=== PATIENT | female | born 1980 | race Caucasian/White ===

== ENCOUNTER → 2016-04-26 | Outpatient (CLI) | payer BC ==
[2016-04-27 14:06] LABS: Gliadin AB IgA, Deaminated 7 UNITS (<20); Gliadin AB IgG, Deaminated 4 UNITS (<20)
[2016-05-10 14:52] LABS: Mis test requested (Blood) Celiac Disease
[2016-05-13 11:15] LABS: Mis test requested (Blood) CD203
== END | disposition home or self-care (01) ==
LOC: LABWHC1 11:13
PROVIDERS: ATTEND Allergy & Immunology
DX: L50.9 Urticaria, unspecified (principal); R10.9 Unspecified abdominal pain
CPT/HCPCS: 36415; 81376; 81383; 82784; 83516; 84443; 86376; 86800; 88184; 88185

== ENCOUNTER 2016-06-18 08:40 | Day surgery (SDC) | payer BC ==
[2016-06-15 11:55] VITALS: BMI 38.9
[~2016-06-18 08:40] MED LIST: LACTATED RINGERS 1,000 ML IV SCH
[2016-06-18] MEDS ORDERED: LACTATED RINGERS 1,000 ML IV ONE (09:16)
[2016-06-18] MEDS ORDERED: LIDOCAINE 1% 20 ML VIAL (10MG/ML) FOR IV START INTRADERMA ONE (09:17)
[2016-06-18 09:20] VITALS: RESP 18; TEMP 98
--- NOTE | 2016-06-18 09:25 | P.GSHP ---
History of Present Illness H&P Date: 06/18/16 Chief Complaint: GERD This a 36-year-old female who presents today for EGD. She's had issues with GERD. - Constitutional Constitutional: Reports as per HPI Past Medical History Past Medical History: Fibromyalgia, GERD/Reflux, Hypertension, Osteoarthritis ( OA) Additional Past Medical History / Comment(s): Has migraines, dizzy spells, recent cardiology work-up for the dizzy spells. POSITIVE FOR EDS (connective tissue disorder.) States has photosensitivty. History of Any Multi-Drug Resistant Organisms: None Reported Past Surgical History: Back Surgery, Bariatric Surgery, Section, Cholecystectomy, Ear Surgery, Orthopedic Surgery, Tubal Ligation, Uterine Ablation Additional Past Surgical History / Comment(s): Has a piercing in L inner ear, states is to help with her migraines. Lap band removal and gastric sleeve surgery, sinus surgery, LT Knee surgery in 2014 X2. Also had C5 & C6 fusion in the past. RFA LUMBAR NERVES Past Anesthesia/Blood Transfusion Reactions: Previous Problems w/ Anesthesia Additional Past Anesthesia/Blood Transfusion Reaction / Comment(s): Is very restless when waking, has claustrophobia. Past Psychological History: Anxiety, Depression Smoking Status: Never smoker Past Alcohol Use History: Rare Past Drug Use History: None Reported - Past Family History Mother Family Medical History: No Reported History Medications and Allergies Home Medications Medication Instructions Recorded Confirmed Type Rizatriptan Benzoate [Maxalt] 10 mg PO DAILY PRN 08/04/15 06/18/16 History Bisoprolol-Hctz 5-6.25 mg [Ziac 1 tab PO DAILY 06/15/16 06/18/16 History 5-6.25 MG] DULoxetine HCL [Cymbalta] 90 mg PO DAILY 06/15/16 06/18/16 History Diazepam [Valium] 5 mg PO DAILY PRN 06/15/16 06/18/16 History Nabumetone [Relafen] 500 mg PO DAILY 06/15/16 06/18/16 History buPROPion HCL [Wellbutrin XL] 300 mg PO DAILY 06/15/16 06/18/16 History oxyCODONE-APAP 5-325MG [Percocet 1 tab PO HS 06/15/16 06/18/16 History 5-325 mg] tiZANidine [Zanaflex] 4 mg PO HS 06/15/16 06/18/16 History Allergies Allergy/AdvReac Type Severity Reaction Status Date / Time adhesive Allergy Rash/Hives Verified 06/15/16 11:42 latex Allergy Rash/Hives Verified 06/15/16 11:42 Surgical - Exam Vital Signs Temp Pulse Resp BP Pulse Ox 98.0 F 90 18 120/74 100 06/18/16 09:17 06/18/16 09:17 06/18/16 09:17 06/18/16 09:17 06/18/16 09:17 - General well developed, no distress - Eyes PERRL - ENT normal pinna - Neck no masses - Respiratory normal expansion - Cardiovascular Rhythm: regular - Abdomen Abdomen: soft, non tender Assessment and Plan Plan: GERD. We'll perform EGD.
[2016-06-18] MEDS ORDERED: PROPOFOL 10 MG/ML 20 ML VIAL IV ONE (09:32)
--- NOTE | 2016-06-18 09:48 | P.OP ---
Date of Procedure: 06/18/16 Preoperative Diagnosis: GERD Rule out celiac disease Postoperative Diagnosis: Mild antral gastritis Normal duodenum Normal gastric sleeve Procedure(s) Performed: EGD Anesthesia: DONOVAN Surgeon: Brady Lee Pathology: other (Antrum, duodenum) Condition: stable Disposition: PACU Description of Procedure: The patient was placed on the endoscopy table in the lateral position. She received IV sedation. The gastroscope some placed oropharynx and passed into the esophagus and into the stomach. The scope was then placed through the pylorus. The first and second portion of the duodenum appeared normal. A biopsy the duodenum was performed. Scope was then brought back the antrum and this is minimal inflamed a biopsies performed. Scope was then brought back through the gastric sleeve and this appeared normal. The GE junction was at a centimeters and. The distal esophagus appeared minimally inflamed and a biopsies was performed. The scope was then withdrawn and the proximal esophagus. Normal. Scope was withdrawn for patient.
[2016-06-18 10:15] VITALS: BP 123/66; PULSE 72
== END 2016-06-18 10:35 | disposition home or self-care (01) ==
LOC: ORWHC2ENDO 08:40
PROVIDERS: ATTEND Surgery
DX: K21.0 Gastro-esophageal reflux disease with esophagitis (principal); K29.50 Unspecified chronic gastritis without bleeding; I10 Essential (primary) hypertension; M19.90 Unspecified osteoarthritis, unspecified site; F41.9 Anxiety disorder, unspecified; F32.9 Major depressive disorder, single episode, unspecified; G43.909 Migraine, unspecified, not intractable, without status migrainosus; M79.7 Fibromyalgia; Z91.040 Latex allergy status; Z91.048 Other nonmedicinal substance allergy status; Z79.891 Long term (current) use of opiate analgesic; Z79.1 Long term (current) use of non-steroidal anti-inflammatories (NSAID); Z79.899 Other long term (current) drug therapy; Z98.84 Bariatric surgery status
CPT/HCPCS: 43239; 81025; 88305; 88342; J2704; 36415; 74177; 80053; 81003; 82150; 83605; 83690; 85025; 87086; 96361; 96374; 99284

== ENCOUNTER 2016-06-18 16:08 | Emergency (ER) | payer BC ==
[2016-06-18] MEDS ORDERED: SODIUM CHLORIDE 0.9% 1,000 ML IV STA (16:41)
[2016-06-18] MEDS ORDERED: RX INFO: IV CONTRAST WAS GIVEN 1 EACH MISC MISCELLANE PRN (16:41)
[2016-06-18] MEDS ORDERED: HYDROmorphone 1 MG/ML 1 ML SYRINGE IVP STA (16:41)
--- NOTE | 2016-06-18 16:52 | ED ---
Abdominal Pain HPI - General Chief Complaint: Abdominal Pain Stated Complaint: chest/back/abdominal pain Time Seen by Provider: 06/18/16 16:28 Source: patient, RN notes reviewed Mode of arrival: ambulatory Limitations: no limitations - History of Present Illness Initial Comments: 36-year-old female presents to the emergency department with a chief complaint of abdominal pain. Patient had a upper scope today. She states that after the scope she was feeling fine and she went home and she had some terrible abdominal pain. Twisting in the upper abdomen. Patient states he did take a biopsy to test the patient for celiac. Patient states that there is been no nausea vomiting or fever chills with this. Patient denies any cough cold runny nose. Patient states she was concerned due to the worsening abdominal pain so she thought that she should be seen. Patient denies any other symptoms with this. Patient states that she has had multiple abdominal surgeries in the past. Patient denies any recent fever, chills, shortness of breath, chest pain, back pain, nausea vomiting, numbness or tingling, dysuria or hematuria, constipation or diarrhea, headaches or visual changes, or any other current symptoms. - Related Data Home Medications Medication Instructions Recorded Confirmed Rizatriptan Benzoate [Maxalt] 10 mg PO DAILY PRN 08/04/15 06/18/16 Bisoprolol-Hctz 5-6.25 mg [Ziac 1 tab PO DAILY 06/15/16 06/18/16 5-6.25 MG] DULoxetine HCL [Cymbalta] 60 mg PO DAILY 06/15/16 06/18/16 Diazepam [Valium] 5 mg PO DAILY PRN 06/15/16 06/18/16 Nabumetone [Relafen] 500 mg PO BID 06/15/16 06/18/16 buPROPion HCL [Wellbutrin XL] 300 mg PO DAILY 06/15/16 06/18/16 oxyCODONE-APAP 5-325MG [Percocet 1 tab PO Q6HR PRN 06/15/16 06/18/16 5-325 mg] tiZANidine [Zanaflex] 4 mg PO BID PRN 06/15/16 06/18/16 DULoxetine HCL [Cymbalta] 30 mg PO DAILY 06/18/16 06/18/16 Allergies Allergy/AdvReac Type Severity Reaction Status Date / Time adhesive Allergy Rash/Hives Verified 06/18/16 17:06 latex Allergy Rash/Hives Verified 06/18/16 17:06 Review of Systems ROS Statement: Those systems with pertinent positive or pertinent negative responses have been documented in the HPI. ROS Other: All systems not noted in ROS Statement are negative. Past Medical History Past Medical History: Fibromyalgia, GERD/Reflux, Hypertension, Osteoarthritis ( OA) Additional Past Medical History / Comment(s): Has migraines, dizzy spells, recent cardiology work-up for the dizzy spells. POSITIVE FOR EDS (connective tissue disorder.) States has photosensitivty. History of Any Multi-Drug Resistant Organisms: None Reported Past Surgical History: Back Surgery, Bariatric Surgery, Section, Cholecystectomy, Ear Surgery, Orthopedic Surgery, Tubal Ligation, Uterine Ablation Additional Past Surgical History / Comment(s): Has a piercing in L inner ear, states is to help with her migraines. Lap band removal and gastric sleeve surgery, sinus surgery, LT Knee surgery in 2015 X2. Also had C5 & C6 fusion in the past. RFA LUMBAR NERVES Past Anesthesia/Blood Transfusion Reactions: Previous Problems w/ Anesthesia Additional Past Anesthesia/Blood Transfusion Reaction / Comment(s): Is very restless when waking, has claustrophobia. Past Psychological History: Anxiety, Depression Smoking Status: Never smoker Past Alcohol Use History: Rare Past Drug Use History: None Reported - Past Family History Mother Family Medical History: No Reported History General Exam - General Exam Comments Initial Comments: General: The patient is awake and alert, in no distress, and does not appear acutely ill. Eye: Pupils are equal, round and reactive to light, extra-ocular movements are intact; there is normal conjunctiva bilaterally. No signs of icterus. Ears, nose, mouth and throat: There are moist mucous membranes and no oral lesions. Neck: The neck is supple, there is no tenderness. Cardiovascular: There is a regular rate and rhythm. No murmur, rub or gallop is appreciated. Respiratory: Lungs are clear to auscultation, respirations are non-labored, breath sounds are equal. No wheezes, stridor, rales, or rhonchi. Gastrointestinal: Soft, non-distended, non-tender abdomen without masses or organomegaly noted. There is no rebound or guarding present. No CVA tenderness. Bowel sounds are unremarkable. Back: There is no tenderness to palpation in the midline. There is no obvious deformity. No rashes noted. Musculoskeletal: Normal ROM, no tenderness, There is no pedal edema. There is no calf tenderness or swelling. Sensation intact. Pulses equal bilaterally 2+. Neurological: CN II-XII intact, There are no obvious motor or sensory deficits. Coordination appears grossly intact. Speech is normal. Skin: Skin is warm and dry and no rashes or lesions are noted. Psychiatric: Cooperative, appropriate mood & affect, normal judgment. Limitations: no limitations Course Vital Signs 06/18/16 06/18/16 06/18/16 16:15 17:00 17:53 Temperature 98.8 F Pulse Rate 67 63 78 Respiratory 20 16 16 Rate Blood Pressure 118/68 142/59 154/75 O2 Sat by Pulse 100 98 99 Oximetry - Reevaluation(s) Reevaluation #1: 06/18/16 18:03 Patient this time states that she is feeling better. Medical Decision Making - Medical Decision Making 36-year-old female presents emergency department chief complaint of abdominal pain. This time patient's CAT scan of blood work are reviewed. We did discuss results. Mildly elevated liver enzymes. Discussed follow-up for this. We did discuss there is no acute process. We did discuss all the questions. Family stated they understood and all questions have been answered. They will be discharged home. - Lab Data Result diagrams: 06/18/16 16:45 06/18/16 16:45 Lab Results 06/18/16 06/18/16 06/18/16 Range/Units 16:45 16:45 16:45 WBC 6.2 (3.8-10.6) k/uL RBC 4.10 (3.80-5.40) m/uL Hgb 11.6 (11.4-16.0) gm/dL Hct 33.3 L (34.0-46.0) % MCV 81.2 (80.0-100.0) fL MCH 28.3 (25.0-35.0) pg MCHC 34.9 (31.0-37.0) g/dL RDW 14.8 (11.5-15.5) % Plt Count 215 (150-450) k/uL Neutrophils % 72 % Lymphocytes % 21 % Monocytes % 3 % Eosinophils % 2 % Basophils % 0 % Neutrophils # 4.4 (1.3-7.7) k/uL Lymphocytes # 1.3 (1.0-4.8) k/uL Monocytes # 0.2 (0-1.0) k/uL Eosinophils # 0.1 (0-0.7) k/uL Basophils # 0.0 (0-0.2) k/uL Sodium 139 (137-145) mmol/L Potassium 3.8 (3.5-5.1) mmol/L Chloride 100 (98-107) mmol/L Carbon Dioxide 29 (22-30) mmol/L Anion Gap 10 mmol/L BUN 11 (7-17) mg/dL Creatinine 0.80 (0.52-1.04) mg/dL Est GFR (MDRD) Af Amer >60 (>60 ml/min/1.73 sqM) Est GFR (MDRD) Non-Af >60 (>60 ml/min/1.73 sqM) Glucose 78 (74-99) mg/dL Plasma Lactic Acid James 1.1 (0.7-2.0) mmol/L Calcium 9.0 (8.4-10.2) mg/dL Total Bilirubin 1.0 (0.2-1.3) mg/dL AST 76 H (14-36) U/L ALT 56 H (9-52) U/L Alkaline Phosphatase 91 (38-126) U/L Total Protein 6.6 (6.3-8.2) g/dL Albumin 3.7 (3.5-5.0) g/dL Amylase 62 (30-110) U/L Lipase 147 (23-300) U/L Urine Color Urine Appearance (Clear) Urine pH (5.0-8.0) Ur Specific Snyder (1.001-1.035) Urine Protein (Negative) Urine Glucose (UA) (Negative) Urine Ketones (Negative) Urine Blood (Negative) Urine Nitrate (Negative) Urine Bilirubin (Negative) Urine Urobilinogen (<2.0) mg/dL Ur Leukocyte Esterase (Negative) 06/18/16 Range/Units 17:45 WBC (3.8-10.6) k/uL RBC (3.80-5.40) m/uL Hgb (11.4-16.0) gm/dL Hct (34.0-46.0) % MCV (80.0-100.0) fL MCH (25.0-35.0) pg MCHC (31.0-37.0) g/dL RDW (11.5-15.5) % Plt Count (150-450) k/uL Neutrophils % % Lymphocytes % % Monocytes % % Eosinophils % % Basophils % % Neutrophils # (1.3-7.7) k/uL Lymphocytes # (1.0-4.8) k/uL Monocytes # (0-1.0) k/uL Eosinophils # (0-0.7) k/uL Basophils # (0-0.2) k/uL Sodium (137-145) mmol/L Potassium (3.5-5.1) mmol/L Chloride (98-107) mmol/L Carbon Dioxide (22-30) mmol/L Anion Gap mmol/L BUN (7-17) mg/dL Creatinine (0.52-1.04) mg/dL Est GFR (MDRD) Af Amer (>60 ml/min/1.73 sqM) Est GFR (MDRD) Non-Af (>60 ml/min/1.73 sqM) Glucose (74-99) mg/dL Plasma Lactic Acid James (0.7-2.0) mmol/L Calcium (8.4-10.2) mg/dL Total Bilirubin (0.2-1.3) mg/dL AST (14-36) U/L ALT (9-52) U/L Alkaline Phosphatase (38-126) U/L Total Protein (6.3-8.2) g/dL Albumin (3.5-5.0) g/dL Amylase (30-110) U/L Lipase (23-300) U/L Urine Color Yellow Urine Appearance Clear (Clear) Urine pH 6.0 (5.0-8.0) Ur Specific Snyder 1.029 (1.001-1.035) Urine Protein Negative (Negative) Urine Glucose (UA) Negative (Negative) Urine Ketones Negative (Negative) Urine Blood Negative (Negative) Urine Nitrate Negative (Negative) Urine Bilirubin Negative (Negative) Urine Urobilinogen <2.0 (<2.0) mg/dL Ur Leukocyte Esterase Negative (Negative) - Radiology Data Radiology results: report reviewed, image reviewed Disposition Clinical Impression: Epigastric abdominal pain Disposition: HOME SELF-CARE Condition: Stable Instructions: Abdominal Pain (ED) Additional Instructions: Please use medication as discussed. Please follow up with family doctor if symptoms have not improved over the next two days. Please return to the emergency room if your symptoms increase or worsen or for any other concerns. Referrals: Dharmesh Montano MD [Primary Care Provider] - 1-2 days Time of Disposition: 18:04
[2016-06-18 17:05] LABS: Basophils % (A) 0 %; CH 28.1; CHCM 34.8; Eosinophils # (A) 0.1 k/uL (0-0.7); Eosinophils % (A) 2 %; HCT 33.3 % (34.0-46.0); HDW 3.17; HGB 11.6 gm/dL (11.4-16.0); Luc % (Auto) 2; Lymphocytes # (A) 1.3 k/uL (1.0-4.8); Lymphocytes % (A) 21 %; MCH 28.3 pg (25.0-35.0); MCHC 34.9 g/dL (31.0-37.0); MCV 81.2 fL (80.0-100.0); Mean Platelet Volume 7.5; Monocytes # (A) 0.2 k/uL (0-1.0); Monocytes % (A) 3 %; Neutrophils # (A) 4.4 k/uL (1.3-7.7); Neutrophils % (A) 72 %; RDW 14.8 % (11.5-15.5); WBC 6.2 k/uL (3.8-10.6); WBC (Perox) 6.56
[2016-06-18 17:24] LABS: ALT 56 U/L (9-52); AST 76 U/L (14-36); Alkaline Phosphatase 91 U/L (38-126); Amylase 62 U/L (30-110); Anion Gap 10 mmol/L; Blood Urea Nitrogen 11 mg/dL (7-17); Carbon Dioxide 29 mmol/L (22-30); Chloride 100 mmol/L (98-107); Glucose 78 mg/dL (74-99); Non-African American GFR(MDRD) >60 (>60 ml/min/1.73 sqM); Potassium 3.8 mmol/L (3.5-5.1); Sodium 139 mmol/L (137-145); Total Protein 6.6 g/dL (6.3-8.2)
--- NOTE | 2016-06-18 17:53 | CT ---
EXAMINATION TYPE: CT abdomen pelvis w con DATE OF EXAM: 06/18/2016 5:41 PM COMPARISON: NONE HISTORY: Patient having pain under ribcage, under xiphoid after having upper scope by Dr. Lee th is morning CT DLP: 1413.0 mGycm Automated exposure control for dose reduction was used. TECHNIQUE: Helical acquisition of images was performed from the lung bases through the pelvis. CONTRAST: Performed without Oral Contrast and with IV Contrast, patient injected with 100 mL of Omnipaque 300. FINDINGS: Lung bases are clear. There is no pleural effusion. There is a small hiatal hernia. There are surgica l clips at the gastric fundus. Liver spleen pancreas appear normal. There are clips from cholecystectomy. Bile ducts are not dilated . Common bile duct measures 1 cm. There is no adrenal mass. Kidneys show satisfactory contrast opacification. There is no hydronephrosi s. There is no retroperitoneal adenopathy. There is no ascites. Appendix appears normal. I see no int estinal wall thickening. There are no dilated loops. There is no sign of a pelvic mass. Bladder diste nds smoothly. There is no pelvic lymphadenopathy. I see no bony destructive process. There is bilater al L5 spondylolysis. There is also spondylolysis of L2 IMPRESSION: SMALL HIATAL HERNIA. GASTRIC SURGERY CHANGES CONSISTENT WITH BARIATRIC SURGERY. THERE IS L2 AND L5 SPONDYLOLYSIS WITHOUT SPONDYLOLISTHESIS. NO COMPRESSION FRACTURE. NO SIGN OF ACUTE ABDOMEN AND PELVIS. NO FREE AIR.
[2016-06-18 17:59] LABS: Appearance,Urine Clear (Clear); Bilirubin,Urine Negative (Negative); Glucose,Urine (UA) Negative (Negative); Ketones,Urine Negative (Negative); Leukocyte Esterase,Urine Negative (Negative); Nitrite,Urine Negative (Negative); Protein,Urine Negative (Negative); Specific Gravity,Urine 1.029 (1.001-1.035); UA Billing (MACRO vs. MICRO) CHEM; Urobilinogen,Urine <2.0 mg/dL (<2.0)
[2016-06-18 18:14] VITALS: BP 124/58; PULSE 62; RESP 18; TEMP 97.7
== END 2016-06-18 18:14 | disposition home or self-care (01) ==
LOC: EC 16:08
DX: R10.13 Epigastric pain (principal); R07.9 Chest pain, unspecified; M54.9 Dorsalgia, unspecified; R74.8 Abnormal levels of other serum enzymes; M79.7 Fibromyalgia; I10 Essential (primary) hypertension; M19.90 Unspecified osteoarthritis, unspecified site; F41.9 Anxiety disorder, unspecified; F32.9 Major depressive disorder, single episode, unspecified; Z79.899 Other long term (current) drug therapy; Z91.040 Latex allergy status; Z88.8 Allergy status to other drugs, medicaments and biological substances; Z90.49 Acquired absence of other specified parts of digestive tract; Z98.84 Bariatric surgery status
CPT/HCPCS: 36415; 80053; 82150; 83605; 83690; 85025; 81003; 87086; 74177; 99284; 96374; 96361; J1170; Q9967

== ENCOUNTER → 2016-07-05 | Outpatient (CLI) | payer BC ==
[2016-07-05 17:28] VITALS: BP 161/94; PULSE 62; RESP 15; TEMP 98.4; BMI 39.6
--- NOTE | 2016-07-06 07:51 | P.HPBAR ---
Bariatric H&P - History & Physicial H&P Date: 07/05/16 History & Physicial: Visit/CC: sleeve f/u (EGD June 2016) Patient initial contact: Initial weight: Initial weight in pounds: Height: 5 ft 3 in Initial BMI: Last weight: Current weight: 101.423 kg Current weight in pounds: 223.60 Current BMI: 39.6 [place] body weight (based on NIH guidelines): 52.163 kg Excess body weight loss: The patient is a 36 year-old F who presents for Bariatric Assessment. Patient presents today for sleeve yesterday fall. She had a recent EGD performed to [place] for possible celiac disease her biopsies are benign. Patient still has complaints of some epigastric pain. She describes a spasm type pain in the epigastric area. Past Medical History Past Medical History: Fibromyalgia, GERD/Reflux, Hypertension, Osteoarthritis ( OA) Additional Past Medical History / Comment(s): Has migraines, dizzy spells, recent cardiology work-up for the dizzy spells. POSITIVE FOR EDS (connective tissue disorder.) States has photosensitivty. History of Any Multi-Drug Resistant Organisms: None Reported Past Surgical History: Back Surgery, Bariatric Surgery, Section, Cholecystectomy, Ear Surgery, Orthopedic Surgery, Tubal Ligation, Uterine Ablation Additional Past Surgical History / Comment(s): Has a piercing in L inner ear, states is to help with her migraines. Lap band placed 2010 and then removed with conversion to Gastric Sleeve in 2012, sinus surgery, LT Knee surgery in 2014 X2. Also had C5 & C6 fusion in the past. RFA LUMBAR NERVES Past Anesthesia/Blood Transfusion Reactions: Previous Problems w/ Anesthesia Additional Past Anesthesia/Blood Transfusion Reaction / Comm: Is very restless when waking, has claustrophobia. Past Psychological History: Anxiety, Depression Smoking Status: Never smoker Past Alcohol Use History: Rare Past Drug Use History: None Reported - Past Family History Mother Family Medical History: No Reported History Surgical - Exam Vital Signs Temp Pulse Resp BP 98.4 F 62 15 161/94 07/05/16 17:13 07/05/16 17:13 07/05/16 17:13 07/05/16 17:13 - General well developed, no distress - Eyes PERRL - Neck no masses - Respiratory normal expansion - Cardiovascular Rhythm: regular - Abdomen Abdomen: soft, non tender Bariatric Assessment & Plan Plan: Morbid obesity. Patient is doing well. Weight loss. The patient will have a esophagram performed to rule out reflux or spasm. Bariatric Checklist Checklist: Plan: Checklist: EGD: 1. Hiatal hernia: 2. H. Pylori: HgbA1c: Vitamin D: Smoking: Never smoker Primary care physician referral: Dusty Psychiatry clearance: Cardiology clearance: Sleep study: Diet journal: VTE risk score: VTE risk level: Rehab needs at discharge:
== END | disposition home or self-care (01) ==
LOC: BARWHC3 14:55
PROVIDERS: ATTEND Surgery
DX: Z48.815 Encounter for surgical aftercare following surgery on the digestive system (principal); E66.01 Morbid (severe) obesity due to excess calories; Z68.39 Body mass index [BMI] 39.0-39.9, adult; R10.13 Epigastric pain; Z98.84 Bariatric surgery status
CPT/HCPCS: 99201

== ENCOUNTER → 2016-07-12 | Outpatient (CLI) | payer BC ==
--- NOTE | 2016-07-12 13:18 | FL ---
EXAMINATION TYPE: FL barium swallow DATE OF EXAM: 07/12/2016 1:01 PM LIMITED ESOPHAGRAM: CLINICAL HISTORY: History of lap band replaced by gastric sleeve 2012 with new sharp upper abdominal pain. Recent endoscopy. TECHNIQUE: Limited esophagram is performed utilizing 20 oz of contrast. A total of 1 minute 21 secon ds of fluoroscopic time was utilized during procedure. COMPARISON: CT abdomen and pelvis June 18, 2016.. FINDINGS: The patient drank oral contrast. Note is made of fusion plate in the lower cervical spin e. Note is made of cholecystectomy clips There is good flow of contrast along the course of the esoph ingrid. There is good flow of contrast along the course of diaphragmatic hiatus into gastric pouch jus t above sutures. There is an initial delay at level of proximal anastomosis of gastric sleeve. There is good flow through gastric sleeve with delay also noted at distal anastomosis. There is eventual fl ow into duodenal sweep. No significant hiatal hernia seen on this study suggesting sliding-type hiata l hernia on recent CT. No gastroesophageal reflux identified. No leak of contrast seen. IMPRESSION: Mild to moderate delay or obstruction at proximal and distal anastomosis of sleeve. Patie nt remains asymptomatic without symptoms of nausea or vomiting.
== END | disposition home or self-care (01) ==
LOC: RADFLMAIN 12:22
PROVIDERS: ATTEND Surgery
DX: R13.10 Dysphagia, unspecified (principal)
CPT/HCPCS: 74220

== ENCOUNTER → 2016-08-13 | Outpatient (CLI) | payer BC ==
--- NOTE | 2016-08-13 08:54 | MR ---
EXAMINATION TYPE: MR knee RT wo con DATE OF EXAM: 08/13/2016 8:35 AM COMPARISON: NONE HISTORY: rt knee pain TECHNIQUE: Multiplanar, multisequence imaging of the right knee is performed FINDINGS: MEDIAL MENISCUS: Linear increased signal posterior horn medial meniscus which extends to the peripher y of the meniscus without definite tear at this time. Anterior horn is unremarkable. LATERAL MENISCUS: Anterior and posterior horns are intact without tear. CRUCIATE LIGAMENTS: The anterior and posterior cruciate ligaments are intact and unremarkable. COLLATERAL LIGAMENTS: The medial collateral ligament and lateral collateral ligament complex are intact and unremarkable. EXTENSOR MECHANISM: Visualized quadriceps and patellar tendons are intact. EFFUSION: No evidence for joint effusion. POPLITEAL CYST: No popliteal/cazares cyst. TRICOMPARTMENT SPACES: Mild degenerative narrowing medial tibiofemoral joint space. CARTILAGE: Cartilaginous thinning involving the patella with underlying cystic change compatible with chondromalacia patella. Additional small cartilaginous defect and underlying cystic change involving the anterior aspect medial femoral condyle. BONE MARROW SIGNAL: No focal abnormal marrow signal is appreciated: OTHER: No additional significant abnormality is appreciated. IMPRESSION: 1. Linear increased signal posterior horn medial meniscus which extends to the periphery of the menis cus without definite tear at this time. 2. Degenerative narrowing as described with changes of chondromalacia patella. Cartilaginous defects as noted.
== END | disposition home or self-care (01) ==
LOC: RADMRIMAIN 07:57
PROVIDERS: ATTEND Orthopaedic Surgery
DX: M17.11 Unilateral primary osteoarthritis, right knee (principal); M22.41 Chondromalacia patellae, right knee

== ENCOUNTER → 2016-10-26 | Outpatient (CLI) | payer BC ==
[2016-10-27 11:37] LABS: Protein C (Activity) 113 % (70 - 130)
[2016-10-27 11:38] LABS: Protein S (Activity) 123 % (65 - 140)
[2016-10-29 10:42] LABS: Mis test requested (Blood) Thrombin Time Rfx1:1
== END | disposition home or self-care (01) ==
LOC: LABWHC1 12:13
PROVIDERS: ATTEND Psychiatry & Neurology Neurology
DX: G90.50 Complex regional pain syndrome I, unspecified (principal); R42 Dizziness and giddiness
CPT/HCPCS: 36415; 81240; 81291; 83090; 85300; 85301; 85303; 85306; 85379; 85384; 85613; 85670; 85730; 86147

== ENCOUNTER → 2016-12-28 | Outpatient (CLI) | payer BC ==
[2016-12-28 12:54] LABS: Basophils % (A) 0 %; CHCM 32.9; Eosinophils # (A) 0.1 k/uL (0-0.7); Eosinophils % (A) 3 %; HCT 34.4 % (34.0-46.0); HDW 3.13; HGB 11.6 gm/dL (11.4-16.0); Luc # (Auto) 0.08; Luc % (Auto) 2; Lymphocytes # (A) 1.2 k/uL (1.0-4.8); Lymphocytes % (A) 28 %; MCH 27.7 pg (25.0-35.0); MCHC 33.6 g/dL (31.0-37.0); MCV 82.3 fL (80.0-100.0); Mean Platelet Volume 6.6; Monocytes # (A) 0.2 k/uL (0-1.0); Monocytes % (A) 5 %; Neutrophils # (A) 2.6 k/uL (1.3-7.7); Neutrophils % (A) 62 %; RBC 4.18 m/uL (3.80-5.40); RDW 13.1 % (11.5-15.5); WBC 4.3 k/uL (3.8-10.6); WBC (Perox) 4.43
== END | disposition home or self-care (01) ==
LOC: LABWHC1 12:19
PROVIDERS: ATTEND Psychiatry & Neurology Pain Medicine
DX: E53.9 Vitamin B deficiency, unspecified (principal)
CPT/HCPCS: 36415; 82607; 82746; 84207; 85025

== ENCOUNTER → 2017-11-02 | Outpatient (CLI) | payer BC | END | disposition home or self-care (01) | LOC: LABWHC1 08:52 | PROVIDERS: ATTEND Family Medicine | DX: Z32.00 Encounter for pregnancy test, result unknown (principal) | CPT/HCPCS: 36415; 84702 ==

== ENCOUNTER → 2018-01-18 | Outpatient (CLI) | payer BC ==
--- NOTE | 2018-01-18 08:34 | MM ---
Reason for exam: screening (asymptomatic). Baseline mammogram. History: Took hormonal contraceptives beginning at age 15. Physical Findings: Nurse did not find any significant physical abnormalities on exam. MG 3D Screening Mammo W/Cad Bilateral CC and MLO view(s) were taken. There are scattered fibroglandular densities. Left intramammary nodes. Right upper outer quadrant middle posterior depth focal asymmetry. These results were verbally communicated with the patient and result sheet given to the patient on 01/18/18. ASSESSMENT: Incomplete: need additional imaging evaluation, BI-RAD 0 RECOMMENDATION: Ultrasound of the right breast. upper outer quadrant
--- NOTE | 2018-01-18 08:35 | USB ---
Reason for exam: additional evaluation requested from abnormal screening. History: Took hormonal contraceptives beginning at age 15. Physical Findings: Breast exam preformed at baseline screening. US Breast Workup Limited RT Right limited breast ultrasound including focal area of concern, retroareolar and axilla demonstrates no cystic or solid lesion seen. Dense breast tissue corresponds to the focal asymmetry. These results were verbally communicated with the patient and result sheet given to the patient on 01/18/18. ASSESSMENT: Benign, BI-RAD 2 RECOMMENDATION: Return to routine screening mammogram schedule for both breasts.
== END | disposition home or self-care (01) ==
LOC: RADMAMWWP 07:04
PROVIDERS: ATTEND Obstetrics & Gynecology
DX: Z12.31 Encounter for screening mammogram for malignant neoplasm of breast (principal); R92.8 Other abnormal and inconclusive findings on diagnostic imaging of breast
CPT/HCPCS: 77063; 77067

== ENCOUNTER → 2018-01-18 | Outpatient (CLI) | payer BC ==
[2018-01-18 16:21] LABS: Iron Saturation 11.14 (12.00-45.00)
[2018-01-18 16:31] LABS: Folate, Serum 6.4 ng/mL
[2018-01-20 13:40] LABS: Vitamin B1 48 ug/L (38-122)
== END ==
LOC: LABWHC1 08:19
PROVIDERS: ATTEND Psychiatry & Neurology Pain Medicine
DX: R53.83 Other fatigue (principal)
CPT/HCPCS: 36415; 82607; 82728; 82746; 83540; 83550; 84207; 84425; 84466; 84591

== ENCOUNTER → 2018-05-19 | Outpatient (CLI) | payer BC ==
[2018-05-19 13:44] LABS: Basophils % (A) 0 %; Eosinophils # (A) 0.1 k/uL (0-0.7); Eosinophils % (A) 2 %; HCT 33.9 % (34.0-46.0); HGB 11.1 gm/dL (11.4-16.0); Hypochromasia Slight; Lymphocytes # (A) 1.6 k/uL (1.0-4.8); Lymphocytes % (A) 20 %; MCH 24.1 pg (25.0-35.0); MCHC 32.8 g/dL (31.0-37.0); MCV 73.6 fL (80.0-100.0); Mean Platelet Volume 6.9; Microcytosis Slight; Monocytes # (A) 0.4 k/uL (0-1.0); Monocytes % (A) 5 %; Neutrophils # (A) 5.6 k/uL (1.3-7.7); Neutrophils % (A) 72 %; Platelet Count 301 k/uL (150-450); RBC 4.61 m/uL (3.80-5.40); RDW 14.4 % (11.5-15.5); WBC 7.8 k/uL (3.8-10.6)
[2018-05-19 13:47] LABS: Potassium 4.3 mmol/L (3.5-5.1)
== END | disposition home or self-care (01) ==
LOC: LABPAT 12:41
PROVIDERS: ATTEND Orthopaedic Surgery
DX: Z01.812 Encounter for preprocedural laboratory examination (principal); M23.92 Unspecified internal derangement of left knee
CPT/HCPCS: 36415; 80051; 85025

== ENCOUNTER → 2018-05-19 | Outpatient (CLI) | payer BC ==
[2018-05-19 18:54] LABS: Iron Saturation 6.59 (12.00-45.00)
== END | disposition home or self-care (01) ==
LOC: LABWHC1 12:43
PROVIDERS: ATTEND Obstetrics & Gynecology
DX: N91.2 Amenorrhea, unspecified (principal); D50.9 Iron deficiency anemia, unspecified
CPT/HCPCS: 36415; 82670; 82728; 83001; 83002; 83540; 83550; 84146; 84443

== ENCOUNTER → 2018-05-23 | Outpatient (CLI) | payer BC ==
--- NOTE | 2018-05-23 09:05 | CT ---
EXAMINATION TYPE: CT cervical spine wo con DATE OF EXAM: 05/23/2018 COMPARISON: CT cervical spine January 30, 2013 HISTORY: Cervicalgia per order. Headache with pain in shoulders and neck as well as numbness in hands since 2007 causing pain numbness or tingling into both arms and fingers per patient. History of prio r neck surgery July 2013. CT DLP: 723.9 mGycm. Automated Exposure Control for Dose Reduction was Utilized. TECHNIQUE: CT scan of the cervical spine is obtained without contrast, axial images are obtained, sa gittal and coronal reformatted images are also reviewed. FINDINGS: Cervical spine is visualized in its entirety from C1 through upper thoracic levels, demonst rates satisfactory alignment without evidence of acute fracture or dislocation. Prevertebral soft ti ssue appears within normal limits. The C1-C2 articulation is within normal limits on the coronal sofy ges. There is anterior fusion plate with ossific fusion at C5-C6 level. Vertebral body heights and di sc space heights are maintained above and below surgical levels. No suspicious posterior disc herniat ions are present on sagittal images. Review of axial images shows the C2-C3 and C3-C4 levels to appear within normal limits. Axial images at C4-C5 level show persistent small right paracentral disc protrusion mildly effacing a nterior thecal sac on axial image 44, bilateral neural foramina are patent. No significant change fro m prior. Axial images at the C5-C6 level show anterior fusion plate, bilateral neural foramina are patent, the re is mild effacement of right anterolateral thecal sac due to eccentric posterior spurring near axia l image 51. Axial images at C6-C7 and C7-T1 levels remain within normal limits. Visualized thyroid gland is felt within normal limits. Visualized lung apices are clear. There is par tial visualization of stimulator device in the posterior soft tissue. IMPRESSION: Interval surgery C5-C6 level with satisfactory alignment. Some right posterior paracentra l spurring or bony ossification effaces the anterolateral thecal sac. Stable small disc herniation C4 -C5 level. No new prominent disc herniations are seen.
== END ==
LOC: RADCTMAIN 07:37
PROVIDERS: ATTEND Psychiatry & Neurology Neurology
DX: M50.221 Other cervical disc displacement at C4-C5 level (principal)
CPT/HCPCS: 72125

== ENCOUNTER 2018-05-26 06:57 | Day surgery (SDC) | payer BC ==
[2018-05-24 16:10] VITALS: BMI 43.9
--- NOTE | 2018-05-25 09:05 | HP ---
HISTORY AND PHYSICAL CHIEF COMPLAINT: Left knee pain. 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 She notes locking, giving way, and pain with weightbearing activities. She also notes night symptoms. She has tried medications in addition to previous injections with only partial temporary relief. She had previously undergone a left knee arthroscopy in 2016. PAST MEDICAL HISTORY: Significant for hypertension and arthritis. PAST SURGICAL HISTORY: Significant for left knee arthroscopy. CURRENT MEDICATIONS: 1. Cymbalta. 2. Ambien. 3. Celebrex. 4. Hydrochlorothiazide. ALLERGIES: She denies drug allergies. FAMILY HISTORY: Family history is noncontributory. SOCIAL HISTORY: Social history is negative for current tobacco or alcohol use. REVIEW OF SYSTEMS: Sixteen-point review of systems otherwise reviewed and is noncontributory. PHYSICAL EXAMINATION: On examination, the patient is approximately 5 feet 3 inches, 235 pounds with a BMI of 41.63. HEENT exam is nonfocal. Neck is supple. She has painless passive motion of her left hip. Straight leg raise is negative. Active motion left knee -8 to 125 degrees of flexion. She has mild effusion. Collaterals are stable, Madhavi's negative. She is tender about the medial joint line. Juanjo's elicits medial pain. She has genu varum alignment. Her distal neurovascular exam appears intact in the left lower extremity. X-rays to include weightbearing notch lateral and Merchant views of the left knee obtained in the office show moderate medial compartment narrowing. MRI report from May of 2015 shows evidence of a posterior medial meniscal tear in addition to medial femoral condyle chondral injury. IMPRESSION: Left knee internal derangement with possible recurrent medial meniscal tear versus medial femoral condyle chondral injury. RECOMMENDATIONS: I talked to the patient at length regarding her condition and treatment options. At this point, she is quite symptomatic and having pain and mechanical symptoms despite conservative measures. After thorough discussion, she opts to proceed with surgery. We will plan to proceed with left knee arthroscopic evaluation with possible medial femoral chondrectomy and possible microfracture. We will also assess the meniscus and consider partial meniscectomy if needed. We will likely perform that as an outpatient procedure. Risks and benefits were discussed at length in layman's terms. MMODL / IJN: [id number] /
[~2018-05-26 06:57] MED LIST changes: +DEXAMETHASONE SOD PHOSPHATE 10 MG/ML 1 ML VIAL IV ONE; +HYDROmorphone 0.5 MG/0.5 ML SYRINGE IVP PRN; +MIDAZOLAM (PF) 2 MG/2 ML VIAL IV PRN; +ONDANSETRON 4 MG/2 ML VIAL IVP ONE; +SCOPOLAMINE 1.5MG/72HR PATCH TRANSDERM ONE
[2018-05-26] MEDS ORDERED: LIDOCAINE 1% 20 ML VIAL (10MG/ML) FOR IV START INTRADERMA ONE (07:41)
[2018-05-26] MEDS ORDERED: fentaNYL (PF) 50 MCG/ML 2 ML AMP ONE (07:55)
[2018-05-26] MEDS ORDERED: SUCCINYLCHOLINE CHLORIDE 100 MG/5 ML SYR IV ONE (07:55)
[2018-05-26] MEDS ORDERED: LIDOCAINE 1% INJ 10MG/ML (20 ML MDV) ONE (07:55)
[2018-05-26] MEDS ORDERED: KETOROLAC 30 MG/ML 1 ML VIAL ONE (07:55)
[2018-05-26] MEDS ORDERED: PROPOFOL 10 MG/ML 20 ML VIAL IV ONE (07:55)
[2018-05-26] MEDS ORDERED: HYDROmorphone (PF) 1 MG/ML ONE (07:55)
[2018-05-26] MEDS ORDERED: MIDAZOLAM 2 MG/2 ML VIAL ONE (07:55)
[2018-05-26] MEDS ORDERED: EPINEPHrine (PF) 1 ML in SODIUM CHLORIDE 0.9% IRRIGATIO 3,000 ML IRRIGATION ONE ×4 (08:01)
[2018-05-26] MEDS: ceFAZolin IN SWFI 2 GM/20 ML SYRINGE IVP ONE ×2 (08:02→08:05)
--- NOTE | 2018-05-26 08:51 | P.OP ---
Date of Procedure: 05/26/18 Preoperative Diagnosis: Left knee internal derangement Postoperative Diagnosis: Posterior medial meniscal tear left knee, grade 3/4 chondral injury distal medial femoral condyle Procedure(s) Performed: Left knee arthroscopic partial medial meniscectomy, medial femoral chondrectomy , microfracture medial femoral condyle Anesthesia: ASHISHA Surgeon: Avel Dewitt Estimated Blood Loss (ml): 10 Pathology: none sent Condition: stable Disposition: PACU Indications for Procedure: The patient's a 37-year-old female who presents with progressive left knee pain and mechanical symptoms despite conservative measures. A discussion of the risks and benefits of operative intervention versus continued conservative measures was made with the patient. She opted to proceed with surgery. Operative risks to include infection, neurovascular injury, development of blood clots, possible incomplete resolution of symptoms, possible worsening symptoms and need for subsequent procedures was discussed. Informed consent was obtained. Operative Findings: As below Description of Procedure: The patient was brought to the operating room, and after induction of general anesthesia examined the left knee. Collaterals were stable, Madhavi was negative, and posterior drawer was negative. The left lower extremity was prepped and draped in a normal fashion. A superior lateral portal was made through a 3 mm skin incision superior and lateral to the patella. This was used for outflow. A lateral portal was made through a 5 mm vertical skin incision lateral to the patella tendon above the joint line. Diagnostic arthroscopy was performed. On inspection of the medial compartment, and longitudinal tear involving the posterior horn of the medial meniscus in the white-white junction was noted. This was debrided back to stable base with straight baskets and a motorized shaver. She was noted to have a grade 3/4 chondral injury involving the distal medial portion the medial femoral condyle measuring 5 x 7 mm. There was a loose chondral fragment debrided back to stable base with a motorized shaver. Microfracture was performed with a chondral all reaching the subchondral surface down to the bone marrow elements. On inspection of the notch, the anterior cruciate ligament appeared to be intact. On inspection of the lateral compartment no significant meniscal or articular cartilage pathology was noted. On inspection of the patellofemoral articulation diffuse grade 2 chondral changes were noted. The gutters were clear debris. The knee was then thoroughly irrigated. The portals were closed with Steri-Strips. A sterile dressing was applied in addition to a compression stocking. The patient was awoken from general anesthesia and transferred to recovery room in good condition. Blood loss was estimated at 10 mL. No complications were incurred.
[2018-05-26 09:01] VITALS: TEMP 97
[2018-05-26] MEDS ORDERED: LACTATED RINGERS 1,000 ML IV ONE (09:10)
[2018-05-26] MEDS ORDERED: HYDROcodone/APAP 7.5-325MG 1 EACH TAB PO ONE (09:57)
[2018-05-26 10:06] VITALS: RESP 16
[2018-05-26 10:50] VITALS: BP 110/66; PULSE 64
== END 2018-05-26 10:57 | disposition home or self-care (01) ==
LOC: OR 06:57
PROVIDERS: ATTEND Orthopaedic Surgery
DX: S83.242A Other tear of medial meniscus, current injury, left knee, initial encounter (principal); X58.XXXA Exposure to other specified factors, initial encounter; I10 Essential (primary) hypertension; M19.90 Unspecified osteoarthritis, unspecified site; M79.7 Fibromyalgia; K21.9 Gastro-esophageal reflux disease without esophagitis; F41.9 Anxiety disorder, unspecified; F32.9 Major depressive disorder, single episode, unspecified; Z79.899 Other long term (current) drug therapy; Z91.040 Latex allergy status; Z91.048 Other nonmedicinal substance allergy status; Z98.84 Bariatric surgery status
CPT/HCPCS: 81025; 29881; 29879; J2250; J1100; J2405; J0171; J2001; J3010; J1885; J1170 ×2; J0330; J2704; J0690

== ENCOUNTER → 2019-01-01 | Outpatient (CLI) | payer BC ==
--- NOTE | 2019-01-01 08:42 | CT ---
EXAMINATION TYPE: CT cervical spine wo con DATE OF EXAM: 01/01/2019 COMPARISON: 05/23/2018 HISTORY: Neck pain CT DLP: 776.2 mGycm CONTRAST: None CT of the cervical spine is performed in the axial plane at 2 mm thick sections. Reconstructed image s in the coronal, and sagittal plane are reviewed on the computer. No acute fractures are evident. Vertebral body alignment is normal. There is loss of disc height C5-6 with an anterior cervical fusion present at this level. Some nursing service director ior endplate spurring is present with moderate right paracentral impression. This may come in close a pproximation with the spinal cord. Some right foraminal narrowing at this level may be present. Corre late with radicular symptoms. Remaining disc heights are preserved. Vertebral body heights are preserved. No spinal canal stenosis is evident No neural foraminal stenosis is evident. Spina bifida occulta of C1 is present, normal variant. Posterior stimulator leads are evident. IMPRESSIONS: 1. Right paracentral endplate spurring with moderate anterior thecal sac compression and some right foraminal narrowing at C5-6. Anterior cervical fusion is at this level. Lungs are stable from the bruary 2019 comparison.
--- NOTE | 2019-01-01 08:46 | CT ---
EXAMINATION TYPE: CT lumbar spine wo con DATE OF EXAM: 01/01/2019 COMPARISON: None HISTORY: Low back pain CT DLP: 776.2 mGycm CONTRAST: None TECHNIQUE: CT of the lumbar spine is performed on a spiral scan at 3 mm thick sections. Reconstructed images are performed in the coronal and sagittal planes. FINDINGS: T12-L1: No focal disc herniation or significant disc bulge is evident. No spinal canal stenosis or neural foraminal stenosis is present. L1-L2: No focal disc herniation or significant disc bulge is evident. No spinal canal stenosis or n eural foraminal stenosis is present L2-L3: No focal disc herniation or significant disc bulge is evident. No spinal canal stenosis or n eural foraminal stenosis is present. A pars defect appears to be present bilaterally at this level. T his best visualized in the reconstructed sagittal plane images L3-L4: Mild disc bulging is anterior thecal sac contact. No AP spinal canal stenosis or neural forami nal stenosis is present. L4-L5: No focal disc herniation or significant disc bulge is evident. No spinal canal stenosis or n eural foraminal stenosis is present L5-S1: No focal disc herniation or significant disc bulge is evident. No spinal canal stenosis or n eural foraminal stenosis is present. Bilateral pars defects are present at L5-S1. Vertebral alignment appears normal. Vertebral body heights are preserved. Disc heights are preserved. IMPRESSION: Bilateral pars defects at L2-3 and L5-S1.
== END | disposition home or self-care (01) ==
LOC: RADCTMAIN 07:51
PROVIDERS: ATTEND Family Medicine
DX: M48.02 Spinal stenosis, cervical region (principal); R39.81 Functional urinary incontinence
CPT/HCPCS: 72125; 72131

== ENCOUNTER → 2019-02-07 | Outpatient (CLI) | payer BC ==
--- NOTE | 2019-02-07 08:45 | CT ---
EXAMINATION TYPE: CT brain wo con DATE OF EXAM: 02/07/2019 COMPARISON: 05/21/2015 INDICATION: Headache DLP: 995.50 mGycm, Automated exposure control for dose reduction was used. CONTRAST: None CT of the brain is performed utilizing 3 mm thick sections through the posterior fossa and 3 mm thick sections through the remaining calvarium. Study is performed within 24 hours of arrival to the hosp [facility]. No abnormal hyperdensity is present to suggest an acute intracranial hemorrhage. No mass lesion is evident. No acute infarcts are evident. Ventricles and sulci are appropriate for the patient age. No temporal lobe dilatation is evident. Paranasal sinuses and mastoid air cells within the [id number] are clear. Stimulator leads are pres ent. These cause some beam hardening artifact. There is some hyperostosis frontalis internus, normal variant. IMPRESSIONS: 1. Normal CT Brain
--- NOTE | 2019-02-07 12:44 | CT ---
EXAMINATION TYPE: CT cervical spine wo/w con DATE OF EXAM: 02/07/2019 COMPARISON: 01/01/2019 HISTORY: Headache CT DLP: 1225.00 mGycm CONTRAST: Performed without and with IV Contrast, patient injected with 100 ml mL of Isovue 300. CT of the cervical spine is performed in the axial plane at 2 mm thick sections. Reconstructed image s in the coronal, and sagittal plane are reviewed on the computer. No acute fractures are evident. Spina bifida occulta of C1 is present, normal variant. There is an an terior cervical fusion of C5-6. There is loss of disc height to that level. Prevertebral space appear s normal. Posterior spinal lamellar line is intact. Vertebral body alignment is normal. Remaining Disc heights are preserved. Vertebral body heights are preserved. No spinal canal stenosis is evident Right paracentral endplate spurring at C5-6 is again evident with moderate anterior thecal sac compre ssion. No AP spinal canal stenosis present. Mild right foraminal narrowing may be present. No neural foraminal stenosis is evident. No suspicious enhancement is evident. IMPRESSIONS: 1. Postsurgical anterior cervical fusion. 2. No acute osseous abnormality. 3. Examination is stable from 01/01/2019
== END | disposition home or self-care (01) ==
LOC: RADCTMAIN 07:14
PROVIDERS: ATTEND Psychiatry & Neurology Pain Medicine
DX: R51 Headache (principal); M54.12 Radiculopathy, cervical region; Z98.1 Arthrodesis status
CPT/HCPCS: 72127; 70450; Q9967

== ENCOUNTER → 2019-06-20 | Outpatient (CLI) | payer BC | END | disposition home or self-care (01) | LOC: LABWHC1 10:44 | PROVIDERS: ATTEND Psychiatry & Neurology Pain Medicine | DX: G37.9 Demyelinating disease of central nervous system, unspecified (principal) | CPT/HCPCS: 36415; 82040; 82042; 82784; 83916 ==

== ENCOUNTER 2019-06-22 | Emergency (ER) | payer BC | END 2019-06-22 15:55 | disposition home or self-care (01) | CPT/HCPCS: 99283; 96374; 96375 ×2; 96361; J1200; J2765; J1170 ==

== ENCOUNTER → 2019-09-07 | Outpatient (CLI) | payer BC | END | disposition home or self-care (01) | LOC: LABWHC1 11:19 | PROVIDERS: ATTEND Family Medicine | DX: Z32.00 Encounter for pregnancy test, result unknown (principal) | CPT/HCPCS: 36415; 84702 ==

== ENCOUNTER → 2019-10-19 | Outpatient (CLI) | payer BC ==
--- NOTE | 2019-10-19 09:04 | XR ---
EXAMINATION TYPE: XR chest 2V DATE OF EXAM: 10/19/2019 COMPARISON: 07/13/13 HISTORY: Chest pain TECHNIQUE: Frontal and lateral views of the chest are obtained. FINDINGS: There is no focal air space opacity. No evidence for pneumothorax. No pleural effusion. The cardiac silhouette size is within normal limits. The osseous structures are grossly intact. IMPRESSION: 1. No acute cardiopulmonary process.
[2019-10-19 09:05] LABS: Appearance,Urine Clear (Clear); Bilirubin,Urine Negative (Negative); Blood,Urine Negative (Negative); Color,Urine Yellow; Glucose,Urine (UA) Negative (Negative); Ketones,Urine Negative (Negative); Leukocyte Esterase,Urine Negative (Negative); Nitrite,Urine Negative (Negative); PH, Urine 5.5 (5.0-8.0); Protein,Urine Trace (Negative); Specific Gravity,Urine 1.029 (1.001-1.035); Urobilinogen,Urine <2.0 mg/dL (<2.0)
[2019-10-19 09:06] LABS: HCT 36.7 % (34.0-46.0); HGB 12.6 gm/dL (11.4-16.0); MCH 29.4 pg (25.0-35.0); MCHC 34.3 g/dL (31.0-37.0); MCV 85.6 fL (80.0-100.0); Mean Platelet Volume 6.9; Platelet Count 258 k/uL (150-450); RBC 4.28 m/uL (3.80-5.40); RDW 12.7 % (11.5-15.5); WBC 5.3 k/uL (3.8-10.6)
[2019-10-19 09:14] LABS: INR 0.9 (<1.2); Partial Thromboplastin Time 24.2 sec (22.0-30.0); Prothrombin Time 9.9 sec (9.0-12.0)
[2019-10-19 09:38] LABS: African American GFR (CKD) >90 (>60 ml/min/1.73 sqM); Anion Gap 7 mmol/L; Blood Urea Nitrogen 10 mg/dL (7-17); Calcium 9.2 mg/dL (8.4-10.2); Carbon Dioxide 32 mmol/L (22-30); Chloride 100 mmol/L (98-107); Glucose 94 mg/dL (74-99); Non-African American GFR(CKD) >90 (>60 ml/min/1.73 sqM); Potassium 3.7 mmol/L (3.5-5.1); Sodium 139 mmol/L (137-145)
== END | disposition home or self-care (01) ==
LOC: LABPAT 08:21
PROVIDERS: ATTEND Orthopaedic Surgery Orthopaedic Surgery of the Spine
DX: Z01.818 Encounter for other preprocedural examination (principal); M48.02 Spinal stenosis, cervical region
CPT/HCPCS: 36415; 71046; 80048; 81003; 85027; 85610; 85730

== ENCOUNTER 2019-10-24 13:53 | Observation (INO) | payer BC ==
[2019-10-22 11:27] VITALS: BMI 42.5
[~2019-10-24 13:53] MED LIST changes: -HYDROmorphone 0.5 MG/0.5 ML SYRINGE IVP PRN; -LACTATED RINGERS 1,000 ML IV SCH; +LIDOCAINE 1% (10MG/ML) FOR IV START INTRADERMA PRN; -MIDAZOLAM (PF) 2 MG/2 ML VIAL IV PRN; +MIDAZOLAM 2 MG/2 ML VIAL IV PRN; -SCOPOLAMINE 1.5MG/72HR PATCH TRANSDERM ONE; +SODIUM CHLORIDE 0.9% IRRIGATIO 1,000 ML IRRIGATION ONE
[2019-10-24] MEDS ORDERED: ONDANSETRON 4 MG/2 ML VIAL ONE (14:29)
[2019-10-24] MEDS: LACTATED RINGERS 1,000 ML IV SCH (14:30)
[2019-10-24] MEDS ORDERED: SCOPOLAMINE 1.5MG/72HR PATCH TRANSDERM ONE (14:32)
[2019-10-24] MEDS ORDERED: ROCURONIUM BROMIDE 10 MG/ML 5 ML VIAL IV ONE (15:25)
[2019-10-24] MEDS ORDERED: SUCCINYLCHOLINE CHLORIDE 100 MG/5 ML SYR IV ONE (15:25)
[2019-10-24] MEDS ORDERED: MIDAZOLAM 2 MG/2 ML VIAL ONE (15:25)
[2019-10-24] MEDS ORDERED: fentaNYL (PF) 50 MCG/ML 2 ML AMP ONE (15:25)
[2019-10-24] MEDS ORDERED: PHENYLEPHRINE-0.9% NACL SYG 1 MG/10 ML SYRINGE ONE (15:25)
[2019-10-24] MEDS ORDERED: DEXAMETHASONE SOD PHOSPHATE 10 MG/ML 1 ML VIAL ONE (15:25)
[2019-10-24] MEDS ORDERED: PROPOFOL 10 MG/ML 20 ML VIAL IV ONE (15:25)
[2019-10-24] MEDS ORDERED: HYDROmorphone (PF) 1 MG/ML ONE (15:25)
[2019-10-24] MEDS ORDERED: LIDOCAINE 1% INJ 10MG/ML (20 ML MDV) ONE (15:25)
[2019-10-24] MEDS ORDERED: LIDOCAINE 2%-EPI 1:100,000 20 ML VIAL SQ ONE (15:57)
[2019-10-24] MEDS ORDERED: BUPIVACAIN-EPI 0.5%-1:200,000 30 ML VIAL SQ ONE (15:57)
[2019-10-24] MEDS ORDERED: THROMBIN (BOVINE) 5,000 UNIT VIAL MISCELLANE ONE (16:11)
[2019-10-24] MEDS ORDERED: GELATIN SPONGE,ABSORB (LARGE) 1 EACH SPONGE MISCELLANE ONE (16:11)
[2019-10-24] MEDS ORDERED: ceFAZolin 1,000 MG in SODIUM CHLORIDE 0.9% 1,000 ML IRRIGATION ONE (16:13)
[2019-10-24] MEDS ORDERED: LACTATED RINGERS 1,000 ML IV ONE (16:27)
--- NOTE | 2019-10-24 17:12 | XR ---
Cervical spine HISTORY: Needle placement Single lateral view of the cervical spine There is a needle at the intervertebral disc level C4-5. Anterior cervical fusion at C5-6 has been pe rformed. Endotracheal tube is in place. There are overlying probes. IMPRESSION: Orthopedic localization.
[2019-10-24] MEDS ORDERED: HYDROmorphone 0.5 MG/0.5 ML SYRINGE IVP PRN (17:21)
[2019-10-24] MEDS ORDERED: MAGNESIUM HYDROXIDE 2,400 MG/10 ML CUP PO PRN (17:21)
[2019-10-24] MEDS ORDERED: BENZOCAINE/MENTHOL LOZENG 1 EACH LOZENGE MUCOUS MEM PRN (17:21)
[2019-10-24] MEDS ORDERED: HYDROmorphone 1 MG/ML 1 ML SYRINGE IVP PRN (17:21)
[2019-10-24] MEDS ORDERED: tiZANidine 4 MG TAB PO PRN ×2 (17:22)
[2019-10-24] MEDS ORDERED: traMADol 50 MG TAB PO PRN (17:22)
[2019-10-24] MEDS ORDERED: methocarbamoL 500 MG TAB PO PRN (17:22)
[2019-10-24] MEDS ORDERED: SUMAtriptan succinate 50 MG TAB PO PRN (17:22)
[2019-10-24] MEDS ORDERED: ONDANSETRON 4 MG/2 ML VIAL IVP PRN (17:22)
[2019-10-24] MEDS ORDERED: ACETAMINOPHEN TAB 325 MG TAB PO PRN (17:22)
--- NOTE | 2019-10-24 17:31 | P.OP ---
Date of Procedure: 10/24/19 Preoperative Diagnosis: Herniated nucleus pulposis C4 5 and C6 7, cervical stenosis C4 5 and C6 7, upper extremity radiculopathy, neck pain, upper extremity weakness, history of anterior cervical discectomy and fusion with plating C5 6 Postoperative Diagnosis: Same Anesthesia: GETA Pathology: none sent Condition: stable Description of Procedure: BRIEF OPERATIVE NOTE Preoperative Diagnosis:Herniated nucleus pulposis C4 5 and C6 7, cervical stenosis C4 5 and C6 7, upper extremity radiculopathy, neck pain, upper extremity weakness, history of anterior cervical discectomy and fusion with plating C5 6 Postoperative Diagnosis:Herniated nucleus pulposis C4 5 and C6 7, cervical stenosis C4 5 and C6 7, upper extremity radiculopathy, neck pain, upper extremity weakness, history of anterior cervical discectomy and fusion with plating C5 6 Procedure: Removal of deep bony anterior cervical plate C5 6 Expiration of anterior cervical fusion C5 6 with findings of solid fusion Anterior cervical decompression with discectomy and fusion C4 5 C6 7 Placement of interbody graft C4 5 C6 7 Application of anterior cervical plate C4 5 6 7 Surgeon: Dr. Arroyo Handhole Machine Operator: Rodolfo Alexandre is present throughout the entire the case persistence during positioning, dissection, exposure, visualization, and all crucial elements of the case as well as closure. Anesthesia: General anesthesia Estimated blood loss: Approximately 75 mL Complications: None apparent Components implanted: We removed a [employer] venture anterior cervical plate with screws which was found to be in total, we replaced a new plate with screws [id number] [place] anterior cervical plate with combination of 4.0 and 4.5 screws Disposition: To recovery room in good stable condition. OPERATIVE INDICATIONS The patient has had long-standing issues in their neck and upper extremities. A Khushbu 6 years ago she had a disc herniation at C5 6 and after failing conservative management and ultimately underwent anterior cervical discectomy and fusion with our service. She went on to have a good result and had very good relief with that surgery. However the past year or so she's been having some increasing her pain and over the past several months she has been having significant worsening. She was found have significant cervical stenosis with disc herniation at C 45 and at C67 with a stable fusion at C5 6. She was having some weakness at her upper extremity and persistent radiculopathy. he patient has been through conservative treatment. She is not having any lasting benefit despite aggressive conservative treatment. We discussed the possibility of repeat moving the plate and doing anterior cervical discectomy and fusion at C4 5 and at C6 7. We discussed various treatment options including surgery, and the patient wishes to proceed with surgery We discussed the risk, patient's alternatives and benefits of surgery including but not limited to, risk of bleeding risk of infection, risk of need for further surgery, risk of decreased, loss of motion, muscle function, malunion nonunion, hardware failure, nerve damage, paralysis, heart attack, and . OPERATIVE SUMMARY After discussing all the risks, patient alternatives and benefits at length, the patient elected to proceed with surgical intervention, signed informed consent, and presented for their procedure. The patient was seen and examined in the preoperative holding area and the surgical site was marked. The patient was given antibiotics and brought to the operating room. The patient was positioned on the operating room table in a supine position being careful to pad any bony prominences and pressure points. The patient was sedated and intubated by anesthesia in standard fashion. Once the airway and C- spine were stabilized the patient's arms were padded and tucked at her side, with her shoulders gently taped. The head was placed in a donut pad with the neck in good neutral alignment and position. We were careful to maintain the patient's cervical spine and good neutral alignment and position throughout. The patient was prepped and draped in a normal standard fashion. An appropriate timeout and keystone protocol performed. We were able to proceed with the surgery. The local wound area was infiltrated with local anesthetic of her previous incision site at C5 6 . An incision was made transversely approximately 2-1/2 cm over the appropriate levels at C5 6 . Dissection was taken down subcutaneously to the level of the platysma which was split in line with its fibers. There is some scar tissue formation and dissection was a bit more meticulous. Dissection was taken with a carotid approach, with the trachea and esophagus medial and the carotid sheath laterally. We dissected down to the anterior surface of the vertebral bodies. Intraoperative x-ray was taken which showed a marker at the appropriate level. I was able to easily visualize the plate at C5 [address] a marker at the C4 5 level. With the appropriate level positively confirmed, we were able to proceed with discectomy at the appropriate levels. All of the operative levels were exposed appropriately. With the plate exposed I was able to use the appropriate instrumentation to unlock the device and removed the 4 screws in total. The plate was then lifted and found to be in total. The fusion was checked and found excellent stability with no evidence of motion at C5 6. The patient had all their twitches back, and there was no evidence of recurrent laryngeal issue. The wound was copiously irrigated and suctioned dry as had been done periodically throughout the case. At the appropriate level/levels, first at C4 5 and then at C6 7I established an annulotomy with an 11 blade scalpel. A discectomy was performed with a combination of pituitary rongeurs, curettes, a high-speed bur, and Kerrison rongeurs. The posterior longitudinal ligament was taken down as were any posterior osteophytes. Note was made of significant disc herniation at each level with extruded disc material causing further stenosis. I was able to remove the disc herniations as well as the posterior osteophytes and posterior longitudinal ligament. This gave good central and bilateral foraminal decompression. There is no evidence of any dural tear or leak. The endplates were prepared with a high-speed bur. With the endplates in good parallel position, I was able to size for the appropriate size interbody graft. The wound was irrigated and suctioned dry the graft was prepared and malleted into position. It had good alignment and position with the anterior surface flush with the anterior surface of the vertebral bodies. This was done similarly the appropriate levels at C4 5 and then at C6 7 . With the grafts intact, I was able to measure and contour and appropriate sized plate. The plate was positioned at the midline over the appropriate levels at C4 5 6 and 7 . Screw holes were established with a hand drill and drill guide. Screws were placed in good alignment and position with excellent bony purchase. I used rescue screws at C6. They were seated under the locking device. The c onstruct was checked and found to be stable. Intraoperative x-ray was taken which showed good alignment and position of the implants at the appropriate levels. There was no evidence of any dural tear or leak. Good hemostasis was maintained. The wound was copiously irrigated and suctioned dry as had been done periodically throughout the case. The platysma was closed with absorbable suture. The subcutaneous tissue was closed. The subcuticular tissue was closed with absorbable suture. The wound was cleaned and dried and dressed appropriately. A soft cervical collar was placed appropriately. The patient was woken up by anesthesia, extubated, transferred back gently to their hospital bed and brought to the recovery room in good stable condition. The patient will be admitted to the hospital for appropriate postoperative care, medical management and monitoring. We will continue to follow them closely about the postoperative course.
[2019-10-24] MEDS: HYDROmorphone 0.5 MG/0.5 ML SYRINGE IVP PRN ×5 (17:53→21:45)
[2019-10-24] MEDS ORDERED: diphenhydrAMINE 50 MG/ML 1 ML VIAL IVP ONE ×2 (18:29)
[2019-10-24 19:50] VITALS: RESP 16
[2019-10-24] MEDS: SODIUM CHLORIDE 0.9% 1,000 ML IV SCH (20:15)
[2019-10-24] MEDS ORDERED: BISOPROLOL-HCTZ 5-6.25 MG 1 EACH TAB PO SCH (21:00)
[2019-10-24] MEDS ORDERED: GABAPENTIN 100 MG CAP PO SCH (21:00)
[2019-10-24] MEDS ORDERED: DULoxetine HCL 60 MG CAPSULE.DR PO SCH (21:00)
[2019-10-24] MEDS ORDERED: PANTOPRAZOLE 40 MG TABLET PO SCH (21:00)
--- NOTE | 2019-10-24 23:17 | XR ---
EXAMINATION TYPE: XR cervical spine 1V DATE OF EXAM: 10/24/2019 COMPARISON: Today HISTORY: Check screw placement TECHNIQUE: Single view FINDINGS: There is placement of plate and screws fusing posteriorly the C4-5 disc level which is a ch timmy compared to initial exam. There is disc prosthesis at C4-5. Vertebra have normal alignment. Exam limited by the shoulders. IMPRESSION: No complicating process seen. There is a new anterior fusion at C4-5 compared to previous exam.
[2019-10-24] MEDS: HYDROcodone/APAP 5-325MG 1 EACH TAB PO PRN (23:27)
[2019-10-25] MEDS: LACTATED RINGERS 1,000 ML IV SCH (02:16)
[2019-10-25 05:32] VITALS: BP 111/74; PULSE 64; TEMP 97.5
[2019-10-25] MEDS: HYDROcodone/APAP 5-325MG 1 EACH TAB PO PRN ×2 (06:12→10:53)
[2019-10-25] MEDS: SODIUM CHLORIDE 0.9% 1,000 ML IV SCH (07:49)
--- NOTE | 2019-10-25 08:19 | P.CONS ---
History of Present Illness - Reason for Consult Consult date: 10/25/19 - Chief Complaint Cervical radiculopathy - History of Present Illness This is a consultation note on a patient with history of cervical radiculopathy. The patient is seen postop day #1 for surgical repair. She states left-sided arm pain but no new complaints are stated. No voiding difficulties. No significant nausea or vomiting. Review of Systems Constitutional: Denies chills, Denies fever Eyes: denies blurred vision, denies pain Ears, nose, mouth and throat: Denies headache, Denies sore throat Cardiovascular: Denies chest pain, Denies shortness of breath Respiratory: Denies cough Gastrointestinal: Denies abdominal pain, Denies diarrhea, Denies nausea, Denies vomiting Genitourinary: Denies dysuria, Denies hematuria Past Medical History Past Medical History: Fibromyalgia, GERD/Reflux, Hypertension, Osteoarthritis (OA) Additional Past Medical History / Comment(s): migraines, occ. 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 degenerative disk disease, herniated disks-gets pain and numbness in arms, hx anemia(hx iron transfusions), daith piercing in L inner ear for migraines. History of Any Multi-Drug Resistant Organisms: None Reported Past Surgical History: Back Surgery, Bariatric Surgery, Section, Cholecystectomy, Orthopedic Surgery, Tubal Ligation, Uterine Ablation Additional Past Surgical History / Comment(s): left knee arthroscopy x 3, sinus surgery, cervical cerclage x 2, neck fusion, migraine stimulater(battery in left hip with leads going up to scalp)later had revision, lap band/removal, gastric sleeve Past Anesthesia/Blood Transfusion Reactions: Previous Problems w/ Anesthesia, Postoperative Nausea & Vomiting (PONV) Additional Past Anesthesia/Blood Transfusion Reaction / Comm: Is very restless when waking, has claustrophobia. throat swelling after extubation with one surgery, has panic attacks with oxygen masks(no probelms with nasal oxygen). has migraines stimulator- to bring in remote to turn off and information card with her Past Psychological History: Anxiety, Depression Additional Psychological History / Comment(s): claustrophobia-gets panic attacks with oxygen masks Smoking Status: Never smoker Past Alcohol Use History: None Reported Past Drug Use History: None Reported - Past Family History Mother Family Medical History: No Reported History Medications and Allergies Home Medications Medication Instructions Recorded Confirmed Type Bisoprolol-Hctz 5-6.25 mg [Ziac 1 tab PO HS 06/15/16 10/24/19 History 5-6.25 MG] Esomeprazole Magnesium [NexIUM] 20 mg PO HS 07/05/16 10/24/19 History Celecoxib [CeleBREX] 200 mg PO DAILY 05/24/18 10/24/19 History Aspirin [Adult Low Dose Aspirin EC] 81 mg PO DAILY 10/22/19 10/24/19 History DULoxetine HCL [Cymbalta] 60 mg PO HS 10/22/19 10/24/19 History Gabapentin [Neurontin] 200 mg PO HS 10/22/19 10/24/19 History Ketorolac [Toradol] 10 mg PO DIRECTED PRN 10/22/19 10/24/19 History Methocarbamol [Robaxin] 500 mg PO TID PRN 10/22/19 10/24/19 History Rizatriptan Benzoate [Maxalt] 10 mg PO DIRECTED PRN 10/22/19 10/24/19 History Zolpidem Tartrate [Ambien] 10 mg PO HS 10/22/19 10/24/19 History tiZANidine HCL 6 mg PO HS PRN 10/22/19 10/24/19 History tiZANidine [Zanaflex] 2 mg PO DAILY PRN 10/22/19 10/24/19 History traMADol HCL [Ultram] 50 mg PO Q6HR PRN 10/22/19 10/24/19 History HYDROcodone/APAP 5-325MG [[place] 5] 1 each PO Q4HR PRN #42 tab 10/24/19 Rx Allergies Allergy/AdvReac Type Severity Reaction Status Date / Time adhesive Allergy Rash/Hives Verified 10/24/19 14:10 gabapentin [From Neurontin] Allergy tongue Verified 10/24/19 14:10 tingling latex Allergy Rash/Hives Verified 10/24/19 14:10 Physical Exam Vitals: Vital Signs Temp Pulse Resp BP Pulse Ox 10/25/19 05:31 97.5 F L 64 16 111/74 95 10/24/19 21:45 63 129/83 95 10/24/19 20:47 75 125/69 95 10/24/19 20:45 77 124/63 94 L 10/24/19 19:30 68 118/76 92 L 10/24/19 19:15 71 137/83 92 L 10/24/19 19:00 98.2 F 81 16 132/79 94 L 10/24/19 18:35 70 19 126/60 99 10/24/19 18:16 59 L 19 121/58 99 10/24/19 18:00 66 19 124/58 99 10/24/19 17:43 97.6 F 77 19 137/64 95 10/24/19 14:13 97 F L 67 18 147/75 97 Intake and Output 10/24/19 10/25/19 10/25/19 22:59 06:59 14:59 Intake Total 1351 Output Total 100 Balance 1251 Intake: IV 1351 Output: Estimated Blood Loss 100 Other: # Voids 1 2 Weight 109.4 kg - Constitutional General appearance: no acute distress - EENT Eyes: EOMI - Neck Neck: no lymphadenopathy - Respiratory Respiratory: bilateral: CTA - Cardiovascular Rhythm: regular Heart sounds: normal: S1, S2 Abnormal Heart Sounds: no S3 Gallop - Gastrointestinal General gastrointestinal: soft, no tenderness - Neurologic Neurologic: CNII-XII intact Assessment and Plan (1) Cervical radiculopathy at C5 Current Visit: Yes Status: Acute Code(s): M54.12 - RADICULOPATHY, CERVICAL REGION SNOMED Code(s): 40471417 Plan: Continue current regimen of pain medication. We'll continue follow from medical perspective. Anticipate discharge in the next 24 hours.
[2019-10-25] MEDS ORDERED: ASPIRIN 81 MG PO SCH (09:00)
[2019-10-25] MEDS ORDERED: SENNOSIDES-DOCUSATE SODIUM 1 EACH TAB PO SCH (09:00)
--- NOTE | 2019-10-25 11:32 | P.DS ---
Providers Date of admission: 10/25/19 02:26 Expected date of discharge: 10/25/19 Attending physician: Rg Arroyo Primary care physician: Dharmesh Montano - Discharge Diagnosis(es) (1) Status post cervical spinal fusion Current Visit: Yes Status: Acute (2) History of fusion of cervical spine Current Visit: Yes Status: Acute (3) Cervical stenosis of spinal canal Current Visit: Yes Status: Acute (4) Cervical disc herniation Current Visit: Yes Status: Acute (5) Radiculopathy affecting upper extremity Current Visit: Yes Status: Acute (6) Cervicalgia Current Visit: Yes Status: Acute (7) History of migraine Current Visit: Yes Status: Acute (8) History of fibromyalgia Current Visit: Yes Status: Acute (9) Pete-Danlos syndrome Current Visit: Yes Status: Acute (10) History of anemia Current Visit: Yes Status: Acute (11) History of depression Current Visit: Yes Status: Acute Hospital Course: This is a pleasant 39-year-old female who presented with C4-5 and C6-7 herniated nucleus pulposus and cervical stenosis with upper extremity radiculopathy, extremity weakness, cervicalgia, and history of previous fusion at C5-6 who failed outpatient conservative therapy. She was admitted for a C4-5 and C6-7 anterior cervical decompression and fusion with removal of hardware at C5-6. The patient tolerated the procedure well and did well postoperatively. Her cervical pain is adequately controlled. She does continue to have a deep pain radiating over the left shoulder and down the left tricep to the forearm which was present prior to surgical intervention. She feels she is ready for discharge home today but states they [place] 5mg 325mg she has been receiving in the hospital has not provided as much pain control postoperatively she was expecting. She has been able to discontinue IV narcotic medications. Condition on day of discharge stable. Patient will be discharged home. Patient was cleared preoperatively for surgery by Dr. Montano. Patient currently denies any nausea, vomiting, fever, or chills. Patient is eating and voiding freely without difficulty. Patient may shower Optifoam dressing intact. Patient may remove Optifoam dressing in 3 days and shower without a dressing at that time. Patient should refrain from driving until at least after their first follow-up appointment in the office. Patient should avoid excessive neck flexion, extension, rotation, and lateral sidebending; no overhead lifting; no lifting greater than 10 pounds. Patient has a medical history which includes migraines, fibromyalgia, Pete-Danlos syndrome, anemia, and depression. MAPS has been reviewed today, 10/25/2019, with an Overall Overdose Risk Score of 310. An "Opiod Start Talking" Forn has been signed and placed in the patient's chart. A prescription has been written for [place] 7.5 mg/325 mg 1 tab every 4 hours as needed for pain, dispense #42. Patient should avoid previously prescribed Ultram medication. Patient should avoid anti-inflammatories over the next 6 weeks postoperatively. Patient may resume other previous he prescribed home medications. Physical Exam on day of discharge: Patient is awake, alert, and oriented 3 Vital signs stable Good chest excursion with deep inspiration and expiration Full range of motion of the cervical spine with adequate flexion, extension, and bilateral rotation Active range of motion of the upper extremities bilaterally without difficulty Soft cervical collar intact Incision is clean, dry, and intact; no erythema, purulence, or signs of infection No pain with palpation of the surgical site Optifoam intact Procedures: C4-5 and C6-7 anterior cervical decompression and fusion with removal of hardware at C5-6 Patient Condition at Discharge: Stable Plan - Discharge Summary Discharge Rx Participant: No New Discharge Prescriptions: New HYDROcodone/APAP 7.5-325MG [[place] 7.5-325] 1 each PO Q4HR PRN #42 tab PRN Reason: Pain No Action Bisoprolol-Hctz 5-6.25 mg [Ziac 5-6.25 MG] 1 tab PO HS Esomeprazole Magnesium [NexIUM] 20 mg PO HS Celecoxib [CeleBREX] 200 mg PO DAILY tiZANidine HCL 6 mg PO HS PRN PRN Reason: Pain tiZANidine [Zanaflex] 2 mg PO DAILY PRN PRN Reason: Pain DULoxetine HCL [Cymbalta] 60 mg PO HS Methocarbamol [Robaxin] 500 mg PO TID PRN PRN Reason: Pain Gabapentin [Neurontin] 200 mg PO HS Zolpidem Tartrate [Ambien] 10 mg PO HS Aspirin [Adult Low Dose Aspirin EC] 81 mg PO DAILY Rizatriptan Benzoate [Maxalt] 10 mg PO DIRECTED PRN PRN Reason: migraines Ketorolac [Toradol] 10 mg PO DIRECTED PRN PRN Reason: migraines traMADol HCL [Ultram] 50 mg PO Q6HR PRN PRN Reason: Pain Discharge Medication List Bisoprolol-Hctz 5-6.25 mg [Ziac 5-6.25 MG] 1 tab PO HS 06/15/16 [History] Esomeprazole Magnesium [NexIUM] 20 mg PO HS 07/05/16 [History] Celecoxib [CeleBREX] 200 mg PO DAILY 05/24/18 [History] Aspirin [Adult Low Dose Aspirin EC] 81 mg PO DAILY 10/22/19 [History] DULoxetine HCL [Cymbalta] 60 mg PO HS 10/22/19 [History] Gabapentin [Neurontin] 200 mg PO HS 10/22/19 [History] Ketorolac [Toradol] 10 mg PO DIRECTED PRN 10/22/19 [History] Methocarbamol [Robaxin] 500 mg PO TID PRN 10/22/19 [History] Rizatriptan Benzoate [Maxalt] 10 mg PO DIRECTED PRN 10/22/19 [History] Zolpidem Tartrate [Ambien] 10 mg PO HS 10/22/19 [History] tiZANidine HCL 6 mg PO HS PRN 10/22/19 [History] tiZANidine [Zanaflex] 2 mg PO DAILY PRN 10/22/19 [History] traMADol HCL [Ultram] 50 mg PO Q6HR PRN 10/22/19 [History] HYDROcodone/APAP 7.5-325MG [[place] 7.5-325] 1 each PO Q4HR PRN #42 tab 10/25/19 [Rx] Follow up Appointment(s)/Referral(s): Rg Arroyo DO [Doctor of Osteopathic Medicine] - 2 Weeks Activity/Diet/Wound Care/Special Instructions: Keep site clean. May shower with waterproof Tegaderm intact. Do not soak in a tub. After 72 hours postoperatively, patient May remove dressing and then may shower with area uncovered. Leave Steri-Strips intact and allow them to fray off on their own. May ambulate as tolerated. Avoid heavy or rigorous activity. No repetitive bending twisting or lifting. No overhead work. Discharge Disposition: HOME SELF-CARE
== END 2019-10-25 13:05 | disposition home or self-care (01) ==
LOC: OR 13:53 → 5NMEDONC 18:30 → OR 10-25 02:32
PROVIDERS: ADMIT Orthopaedic Surgery Orthopaedic Surgery of the Spine; ATTEND Orthopaedic Surgery Orthopaedic Surgery of the Spine
DX: M50.121 Cervical disc disorder at C4-C5 level with radiculopathy (principal); M50.122 Cervical disc disorder at C5-C6 level with radiculopathy; M25.78 Osteophyte, vertebrae; M48.02 Spinal stenosis, cervical region; Z98.1 Arthrodesis status; Z98.890 Other specified postprocedural states; Z96.82 Presence of neurostimulator; I10 Essential (primary) hypertension; Z82.49 Family history of ischemic heart disease and other diseases of the circulatory system; M79.7 Fibromyalgia; G43.909 Migraine, unspecified, not intractable, without status migrainosus; K21.9 Gastro-esophageal reflux disease without esophagitis; F32.9 Major depressive disorder, single episode, unspecified; F43.10 Post-traumatic stress disorder, unspecified; Q79.60 Ehlers-Danlos syndrome, unspecified; Z90.49 Acquired absence of other specified parts of digestive tract; Z98.51 Tubal ligation status; Z98.84 Bariatric surgery status; F40.240 Claustrophobia; Z83.2 Family history of diseases of the blood and blood-forming organs and certain disorders involving the immune mechanism; Z82.5 Family history of asthma and other chronic lower respiratory diseases; Z82.61 Family history of arthritis; Z81.8 Family history of other mental and behavioral disorders; Z82.3 Family history of stroke; Z82.0 Family history of epilepsy and other diseases of the nervous system; Z83.79 Family history of other diseases of the digestive system; Z83.3 Family history of diabetes mellitus; Z79.82 Long term (current) use of aspirin; Z79.1 Long term (current) use of non-steroidal anti-inflammatories (NSAID); Z79.891 Long term (current) use of opiate analgesic; Z79.899 Other long term (current) drug therapy; Z91.040 Latex allergy status; Z88.8 Allergy status to other drugs, medicaments and biological substances; Z91.09 Other allergy status, other than to drugs and biological substances
CPT/HCPCS: 20680; 22551; 20931; 81025; 86900; 86901; 86850; 72020; G0378; C1713 ×2; C1762 ×2; J2250; J1200; J1100; J0690 ×3; J2405; J2001; J3010; J1170 ×3; J2370; J0330; J2704

== ENCOUNTER → 2020-02-15 | Day surgery (SDC) | payer BC ==
[2020-02-13 10:13] VITALS: BMI 41.6
[~2020-02-15] MED LIST changes: -DEXAMETHASONE SOD PHOSPHATE 10 MG/ML 1 ML VIAL IV ONE; +LACTATED RINGERS 1,000 ML IV SCH; +LIDOCAINE 1% (10MG/ML) FOR IV START INTRADERMA ONE; -LIDOCAINE 1% (10MG/ML) FOR IV START INTRADERMA PRN; +LIDOCAINE 1% INJ 10MG/ML (20 ML MDV) ONE; -MIDAZOLAM 2 MG/2 ML VIAL IV PRN; +MIDAZOLAM 2 MG/2 ML VIAL ONE; -ONDANSETRON 4 MG/2 ML VIAL IVP ONE; +PROPOFOL 10 MG/ML 20 ML VIAL IV ONE; -SODIUM CHLORIDE 0.9% IRRIGATIO 1,000 ML IRRIGATION ONE; +fentaNYL (PF) 50 MCG/ML 2 ML AMP ONE
[2020-02-15 09:13] VITALS: TEMP 96.8
--- NOTE | 2020-02-15 09:30 | P.GSHP ---
History of Present Illness H&P Date: 02/15/20 Chief Complaint: GERD Is a 31-year-old female for EGD. She's had issues with GERD. 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 History of Any Multi-Drug Resistant Organisms: None Reported Past Surgical History: Bariatric Surgery, Section, Cholecystectomy, Ear Surgery, Orthopedic Surgery, Tubal Ligation, Uterine Ablation Additional Past Surgical History / Comment(s): Has a piercing in L inner ear, states is to help with her migraines. Lap band placed 2010 and then removed with conversion to Gastric Sleeve in 2012, sinus surgery, LT Knee surgery in 2014 X2. Also had C5 & C6, C4-C7, fusion in the past. RFA LUMBAR NERVES, revision of migraine stimulator 02/08/20 Past Anesthesia/Blood Transfusion Reactions: Previous Problems w/ Anesthesia, Postoperative Nausea & Vomiting (PONV) Additional Past Anesthesia/Blood Transfusion Reaction / Comment(s): Is very restless when waking, has claustrophobia. Smoking Status: Never smoker - Past Family History Mother Family Medical History: No Reported History Medications and Allergies Home Medications Medication Instructions Recorded Confirmed Type Bisoprolol-Hctz 5-6.25 mg [Ziac 1 tab PO HS 06/15/16 02/15/20 History 5-6.25 MG] Esomeprazole Magnesium [NexIUM] 20 mg PO HS 07/05/16 02/15/20 History Celecoxib [CeleBREX] 200 mg PO DAILY 05/24/18 02/15/20 History Aspirin [Adult Low Dose Aspirin EC] 81 mg PO DAILY 10/22/19 02/15/20 History DULoxetine HCL [Cymbalta] 60 mg PO HS 10/22/19 02/15/20 History Ketorolac [Toradol] 10 mg PO DIRECTED PRN 10/22/19 02/15/20 History Rizatriptan Benzoate [Maxalt] 10 mg PO DIRECTED PRN 10/22/19 02/15/20 History Zolpidem Tartrate [Ambien] 10 mg PO HS 10/22/19 02/15/20 History methocarbamoL [Robaxin] 500 mg PO TID PRN 10/22/19 02/15/20 History tiZANidine HCL 6 mg PO HS PRN 10/22/19 02/15/20 History tiZANidine [Zanaflex] 2 mg PO DAILY PRN 10/22/19 02/15/20 History traMADol HCL [Ultram] 50 mg PO Q6HR PRN 10/22/19 02/15/20 History Allergies Allergy/AdvReac Type Severity Reaction Status Date / Time adhesive Allergy Rash/Hives Verified 02/15/20 09:14 gabapentin [From Neurontin] Allergy tongue Verified 02/15/20 09:14 tingling latex Allergy Rash/Hives Verified 02/15/20 09:14 Surgical - Exam Vital Signs Temp Pulse Resp BP Pulse Ox 96.8 F L 72 16 157/81 96 02/15/20 08:57 02/15/20 08:57 02/15/20 08:57 02/15/20 08:57 02/15/20 08:57 - General well developed, well nourished, no distress - Eyes PERRL - ENT normal pinna - Neck no masses - Respiratory normal expansion - Cardiovascular Rhythm: regular - Abdomen Abdomen: soft, non tender Assessment and Plan Assessment: GERD. We'll perform EGD.
--- NOTE | 2020-02-15 09:45 | P.OP ---
Date of Procedure: 02/15/20 Preoperative Diagnosis: GERD Postoperative Diagnosis: Antral gastritis Procedure(s) Performed: EGD Anesthesia: MAC Surgeon: Brady Lee Pathology: other (Antrum, esophagus) Condition: stable Disposition: PACU Description of Procedure: Patient's placed on the endoscopy table in the lateral position. She received IV sedation. The gastroscope placed oropharynx passed in the esophagus and stomach. Scope was then placed through the pylorus. The first and second portion of the duodenum appeared normal. Scope was brought back the antrum this. Mildly a biopsies performed. Scope was then brought patient had a previous gastric sleeve. The sleeve was patent without evidence of any inflammatory changes. The GE junction was at 40 cm the distal esophagus appeared normal. The proximal esophagus appeared normal. Scope was withdrawn for patient.
[2020-02-15 10:10] VITALS: BP 123/79; PULSE 62; RESP 16
== END ==
LOC: ORWHC2ENDO 08:45
PROVIDERS: ATTEND Surgery
DX: K29.50 Unspecified chronic gastritis without bleeding (principal); K21.00 Gastro-esophageal reflux disease with esophagitis, without bleeding; M19.90 Unspecified osteoarthritis, unspecified site; G43.909 Migraine, unspecified, not intractable, without status migrainosus; L56.8 Other specified acute skin changes due to ultraviolet radiation; M79.7 Fibromyalgia; Q79.60 Ehlers-Danlos syndrome, unspecified; Z98.84 Bariatric surgery status; F40.240 Claustrophobia; Z98.891 History of uterine scar from previous surgery; Z90.49 Acquired absence of other specified parts of digestive tract; Z98.51 Tubal ligation status; Z98.890 Other specified postprocedural states; Z98.1 Arthrodesis status; Z96.89 Presence of other specified functional implants; Z79.82 Long term (current) use of aspirin; Z79.899 Other long term (current) drug therapy; Z79.1 Long term (current) use of non-steroidal anti-inflammatories (NSAID); Z79.891 Long term (current) use of opiate analgesic; Z91.040 Latex allergy status; Z88.8 Allergy status to other drugs, medicaments and biological substances; Z91.09 Other allergy status, other than to drugs and biological substances
CPT/HCPCS: 81025; 88305; 43239; J2250; J2001; J3010; J2704

== ENCOUNTER → 2020-02-18 | Outpatient (CLI) | payer BC ==
--- NOTE | 2020-02-18 18:57 | CT ---
EXAMINATION TYPE: CT brain wo con DATE OF EXAM: 02/18/2020 COMPARISON: CT brain February 07, 2019 HISTORY: left side pressure CT DLP: 1036 mGycm. Automated Exposure Control for Dose Reduction was Utilized. TECHNIQUE: CT scan of the head is performed without contrast. FINDINGS: There is no acute intracranial hemorrhage, mass effect, or midline shift identified. The ventricles and sulci are within normal limits in size. George-white matter differentiation is maintai meagan. The globes are intact and the visualized sinuses remain clear. Prior surgical change to paranasa l sinuses redemonstrated. Persistent frontal scalp stimulator leads extending from the posterior neck region with some areas of streak artifact. IMPRESSION: No acute intracranial hemorrhage or midline shift is seen. No significant change from pr ior CT.
== END | disposition home or self-care (01) ==
LOC: RADCTMAIN 17:17
PROVIDERS: ATTEND Psychiatry & Neurology Neurology
DX: R51.9 Headache, unspecified (principal); Z96.9 Presence of functional implant, unspecified
CPT/HCPCS: 70450

== ENCOUNTER → 2020-07-18 | Outpatient (CLI) | payer BC ==
--- NOTE | 2020-07-18 19:40 | CT ---
EXAMINATION TYPE: CT cervical spine wo/w con DATE OF EXAM: 07/18/2020 COMPARISON: 02/07/2019 HISTORY: Right arm pain and weakness CT DLP: 1799.10 mGycm CONTRAST: Normal CT of the cervical spine is performed in the axial plane at 2 mm thick sections. Reconstructed image s in the coronal, and sagittal plane are reviewed on the computer. No acute fractures are evident. Spina bifida occulta of C1 is noted. Vertebral body alignment is normal. There is an anterior cervical fusion of C4-C7. Disc heights are preserved. Vertebral body heights are preserved. No spinal canal stenosis is evident No neural foraminal stenosis is evident. Electronic leads are in the posterior neck IMPRESSIONS: 1. Normal post cervical spine fusion. 2. No suspicious stenoses.
== END | disposition home or self-care (01) ==
LOC: RADCTMAIN 17:29
PROVIDERS: ATTEND Psychiatry & Neurology Neurology
DX: Z98.1 Arthrodesis status (principal)
CPT/HCPCS: 72127; Q9967

== ENCOUNTER → 2020-11-18 | Outpatient (CLI) | payer BC ==
--- NOTE | 2020-11-18 21:45 | CT ---
EXAMINATION TYPE: CT shoulder RT wo con DATE OF EXAM: 11/18/2020 COMPARISON: None HISTORY: RT shoulder pain. Hx of cervical spinal fusions, want to rule out this as the cause CT DLP: 673.70 mGycm Automated exposure control for dose reduction was used. Contrast: None Technique: Axial images 3 mm thick sections. Reconstructed images in the coronal and sagittal planes. 3-D reconstructed images on the separate computer by the technologist are presented. FINDINGS: No acute fractures evident. The acromioclavicular junction is normal. Humeral head articulates with t he glenoid. Acromiohumeral space appears preserved. Soft tissues appear normal. There is some joint s pace narrowing between the glenohumeral junction compatible some osteoarthritic change, greater than expected for the patient's age. Note is made of an anterior cervical fusion. Portion of the lung hatch within the [id number] is c lear. IMPRESSION: 1. OSTEOARTHRITIC DEGENERATIVE CHANGE RIGHT SHOULDER.
== END | disposition home or self-care (01) ==
LOC: RADCTMAIN 18:01
PROVIDERS: ATTEND Psychiatry & Neurology Neurology
DX: M19.011 Primary osteoarthritis, right shoulder (principal)

== ENCOUNTER → 2021-07-09 | Outpatient (CLI) | payer OTHER ==
--- NOTE | 2021-07-09 10:07 | XR ---
EXAMINATION TYPE: XR knee complete LT DATE OF EXAM: 07/09/2021 COMPARISON: X-ray dated 08/02/2016 INDICATION: Contusion TECHNIQUE: 3 views of the left knee joint FINDINGS: Interval left total knee arthroplasty. 1.7 mm lucency seen at the medial tibial prosthesis, otherwise no hardware complication. No definite acute fracture line identified. Knee joint effusion/soft tissu e swelling. IMPRESSION: No definite acute fracture line identified. Postsurgical changes and knee joint effusion/soft tissue swelling as described above.
== END | disposition home or self-care (01) ==
LOC: RADXRMAIN 09:41
PROVIDERS: ATTEND Emergency Medicine
DX: M25.462 Effusion, left knee (principal); M79.89 Other specified soft tissue disorders

== ENCOUNTER → 2021-07-24 | Outpatient (CLI) | payer BC ==
--- NOTE | 2021-07-24 12:00 | XR ---
EXAMINATION TYPE: XR Hip Complete LT DATE OF EXAM: 07/24/2021 CLINICAL HISTORY: Pain for 6 months. TECHNIQUE: AP and frogleg views of the left hip are obtained. COMPARISON: Prior left hip x-ray October 03, 2012 FINDINGS: There is no acute fracture/dislocation evident in the left hip. The joint space in the le ft hip remains within normal limits. Femoral head shape is maintained. The overlying soft tissue appe ars unremarkable. IMPRESSION: Unremarkable study. No significant change from prior.
== END | disposition home or self-care (01) ==
LOC: RADXRMAIN 11:30
PROVIDERS: ATTEND Family Medicine
DX: M25.552 Pain in left hip (principal)
CPT/HCPCS: 73502

== ENCOUNTER → 2021-10-13 | Outpatient (CLI) | payer BC ==
--- NOTE | 2021-10-13 12:41 | US ---
EXAMINATION TYPE: US transvaginal DATE OF EXAM: 10/13/2021 COMPARISON: None CLINICAL HISTORY: 41-year-old female N93.8 ABNORMAL UTERINE AND VAGINAL BLEEDING. Abnormal menses, c- sections TECHNIQUE: Transvaginal (TV). Date of LMP: 10/08/2021, FINDINGS: EXAM MEASUREMENTS: Uterus: 8.4 x 4.1 x 4.3 cm Endometrial Stripe: 0.4 cm Right Ovary: 2.8 x 1.7 x 1.5 cm 1. Uterus: Appears anteverted but retroflexed. There is a 7 mm round fluid appearing locule centrally along the uterus. Difficult to determine if this is endometrial or myometrial along the junctional z one. Myometrium slightly heterogeneous. 2. Endometrium: Otherwise wnl 3. Right Ovary: wnl 4. Left Ovary: Obscured by overlying bowel gas 5. Bilateral Adnexa: wnl 6. Posterior cul-de-sac: no free fluid IMPRESSION: 1. A 7 mm fluid locule centrally along the uterus. Difficult to determine if this is endometrial or a long the junctional zone of the myometrium. Correlate for a negative status. If history of prior endometrial ablation, focal hematometra would be a consideration. If no prior ablation, a cyst of the junctional zone may be seen with adenomyosis. Consider follow-up in 6-8 weeks to reassess. 2. Unable to visualize the left ovary.
== END | disposition home or self-care (01) ==
LOC: RADUSWWP 11:01
PROVIDERS: ATTEND Obstetrics & Gynecology
DX: N93.8 Other specified abnormal uterine and vaginal bleeding (principal)
CPT/HCPCS: 76830

== ENCOUNTER → 2021-10-27 | Outpatient (CLI) | payer BC ==
--- NOTE | 2021-10-28 12:57 | MM ---
Reason for Exam: Screening (asymptomatic). Last mammogram was performed 3 year(s) and 9 month(s) ago. Patient History: Menarche at age 12. First Full-Term at age 17. Patient has history of breast feeding. Hormonal Contraceptives, from age 15 until age 23. Last menstrual period: 10/06/2021 Risk Values: Andressa 5 year model risk: 0.4%. NCI Lifetime model risk: 8.0%. Prior Study Comparison: 01/18/2018 Bilateral Screening Mammogram, [facility]. Tissue Density: There are scattered fibroglandular densities. Findings: Analyzed By CAD. There is no suspicious group of microcalcifications or new suspicious mass in either breast. Overall Assessment: Benign, BI-RAD 2 Management: Screening Mammogram of both breasts in 1 year. A clinical breast exam by your physician is recommended on an annual basis and results should be correlated with mammographic findings. Electronically signed and approved by: Librado Waldron M.D. Radiologis
== END | disposition home or self-care (01) ==
LOC: RADMAMWWP 13:54
PROVIDERS: ATTEND Obstetrics & Gynecology
DX: Z12.31 Encounter for screening mammogram for malignant neoplasm of breast (principal)
CPT/HCPCS: 77063; 77067

== ENCOUNTER → 2022-06-21 | Outpatient (CLI) | payer BC ==
[2022-06-21 13:52] VITALS: BP 122/78; PULSE 78; TEMP 98.7; BMI 44.1
--- NOTE | 2022-06-29 10:40 | P.HPBAR ---
Bariatric H&P - History & Physicial H&P Date: 06/21/22 History & Physicial: Visit/CC: bariatric F/U Patient initial contact: Initial weight: Initial weight in pounds: Height: 5 ft 3 in Initial BMI: Last weight: Current weight: 112.945 kg Current weight in pounds: 249.00 Current BMI: 44.1 [place] body weight (based on NIH guidelines): 52.163 kg Excess body weight loss: The patient is a 42 year-old F who presents for Bariatric Assessment. Patient presents today for bariatric follow-up. She's had complaints of GERD. She states her GERD is worsened. Her current weight is 249 pounds. 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 History of Any Multi-Drug Resistant Organisms: None Reported Past Surgical History: Bariatric Surgery, Section, Cholecystectomy, Ear Surgery, Joint Replacement, Orthopedic Surgery, Tubal Ligation, Uterine Ablation Additional Past Surgical History / Comment(s): Has a piercing in L inner ear, states is to help with her migraines. Lap band placed 2010 and then removed with conversion to Gastric Sleeve in 2012, sinus surgery, LT Knee surgery in 2014 X2. Also had C5 & C6, C4-C7, fusion in the past. RFA LUMBAR NERVES, revision of migraine stimulator 02/08/20, left knee replacement nov 2020 Past Anesthesia/Blood Transfusion Reactions: Previous Problems w/ Anesthesia, Postoperative Nausea & Vomiting (PONV) Additional Past Anesthesia/Blood Transfusion Reaction / Comm: Is very restless when waking, has claustrophobia. Past Psychological History: Anxiety, Depression Additional Psychological History / Comment(s): claustrophobia-gets panic attacks with oxygen masks Smoking Status: Never smoker Past Alcohol Use History: None Reported Past Drug Use History: None Reported - Past Family History Mother Family Medical History: No Reported History Surgical - Exam Vital Signs Temp Pulse BP 98.7 F 78 122/78 06/21/22 13:45 06/21/22 13:45 06/21/22 13:45 - General well developed, well nourished, no distress - Eyes PERRL - ENT normal pinna - Neck no masses - Respiratory normal expansion - Cardiovascular Rhythm: regular - Abdomen Abdomen: soft, non tender Bariatric Assessment & Plan Plan: The patient's GERD is worsened. She'll be scheduled for EGD. Bariatric Checklist Checklist: Plan: Checklist: EGD: 1. Hiatal hernia: 2. H. Pylori: HgbA1c: Vitamin D: Smoking: Never smoker Primary care physician referral: Dusty Psychiatry clearance: Cardiology clearance: Sleep study: Diet journal: VTE risk score: VTE risk level: Rehab needs at discharge:
== END ==
LOC: BARWHC3 13:31
PROVIDERS: ATTEND Surgery
DX: E66.01 Morbid (severe) obesity due to excess calories (principal); K21.9 Gastro-esophageal reflux disease without esophagitis; M79.7 Fibromyalgia; M19.90 Unspecified osteoarthritis, unspecified site; Z91.048 Other nonmedicinal substance allergy status; Z68.41 Body mass index [BMI] 40.0-44.9, adult; Z91.040 Latex allergy status; Z71.3 Dietary counseling and surveillance; Z98.84 Bariatric surgery status; Z88.8 Allergy status to other drugs, medicaments and biological substances
CPT/HCPCS: 97802; 99211

== ENCOUNTER 2022-07-29 10:04 | Day surgery (SDC) | payer BC ==
[2022-07-27 14:58] VITALS: BMI 43.4
[2022-07-29] MEDS ORDERED: LACTATED RINGERS 1,000 ML IV SCH (10:17)
[2022-07-29 10:27] VITALS: TEMP 98
[2022-07-29] MEDS ORDERED: PROPOFOL 10 MG/ML 20 ML VIAL IV ONE (10:42)
[2022-07-29] MEDS ORDERED: LIDOCAINE 2% INJ 20 MG/ML (2 ML VIAL) ONE (10:42)
--- NOTE | 2022-07-29 10:46 | P.GSHP ---
History of Present Illness H&P Date: 07/29/22 Chief Complaint: GERD This a 42-year-old female with history of GERD. Patient presents today for EGD. Patient's previous history of sleeve gastrectomy. Past Medical History Past Medical History: Blood Disorder, Fibromyalgia, GERD/Reflux, Osteoarthritis (OA) Additional Past Medical History / Comment(s): Takes Ziac for migraines. Degenerative Disc Disease. 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 Migraines. 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 Clausterphobia. History of Any Multi-Drug Resistant Organisms: None Reported Past Surgical History: Bariatric Surgery, Section, Cholecystectomy, Joint Replacement, Orthopedic Surgery, Tubal Ligation, Uterine Ablation Additional Past Surgical History / Comment(s): Piercing in L inner ear for migraines, later removed. Lap band placed 2010 and then removed with conversion to Gastric Sleeve in 2012, sinus surgery, left knee surgery in 2014 X2, neck fusion - C5 & C6, C4-C7, RFA LUMBAR NERVES, migraine stimulator placed, revised and removed, left knee replacement 2020, EGD's. Past Anesthesia/Blood Transfusion Reactions: Previous Problems w/ Anesthesia, Postoperative Nausea & Vomiting (PONV) Additional Past Anesthesia/Blood Transfusion Reaction / Comment(s): Very restless when waking up from anesthesia, has claustrophobia. "Kids wake up hard". Clausterophobia - has panic attacks with oxygen masks. Past Psychological History: Anxiety, Depression Additional Psychological History / Comment(s): Panic attacks. Smoking Status: Never smoker Past Alcohol Use History: None Reported Past Drug Use History: None Reported - Past Family History Mother Family Medical History: CVA/TIA Medications and Allergies Home Medications Medication Instructions Recorded Confirmed Type Bisoprolol-Hctz 5-6.25 mg [Ziac 1 tab PO HS 06/15/16 07/27/22 History 5-6.25 MG] Esomeprazole Magnesium [NexIUM] 20 mg PO HS 07/05/16 07/27/22 History Celecoxib [CeleBREX] 200 mg PO DAILY 05/24/18 07/27/22 History DULoxetine HCL [Cymbalta] 60 mg PO HS 10/22/19 07/27/22 History Zolpidem Tartrate [Ambien] 10 mg PO HS 10/22/19 07/27/22 History methocarbamoL [Robaxin] 500 mg PO TID PRN 10/22/19 07/27/22 History tiZANidine [Zanaflex] 2 mg PO HS PRN 10/22/19 07/27/22 History traMADol HCL [Ultram] 50 mg PO Q6HR PRN 10/22/19 07/27/22 History Erenumab-Aooe [Aimovig 0 mg SQ QMONTHLY 06/21/22 07/27/22 History Autoinjector] buPROPion XL [Wellbutrin XL] 150 mg PO HS 06/21/22 07/27/22 History Allergies Allergy/AdvReac Type Severity Reaction Status Date / Time adhesive Allergy Rash/Hives Verified 07/29/22 10:17 gabapentin [From Neurontin] Allergy tongue Verified 07/29/22 10:17 tingling latex Allergy Rash/Hives Verified 07/29/22 10:17 Surgical - Exam Vital Signs Temp Pulse Resp BP Pulse Ox 98.0 F 87 16 145/76 97 07/29/22 10:26 07/29/22 10:26 07/29/22 10:26 07/29/22 10:26 07/29/22 10:26 - General well developed, well nourished, no distress - Eyes PERRL - ENT normal pinna - Neck no masses - Respiratory normal expansion - Cardiovascular Rhythm: regular - Abdomen Abdomen: soft, non tender Assessment and Plan Assessment: GERD. We'll perform EGD.
--- NOTE | 2022-07-29 10:53 | P.OP ---
Date of Procedure: 07/29/22 Preoperative Diagnosis: GERD Postoperative Diagnosis: Antral gastritis Possible hiatal hernia Procedure(s) Performed: EGD Anesthesia: MAC Pathology: other (Antral) Condition: stable Disposition: PACU Description of Procedure: The patient's placed on the endoscopy table in the lateral position. She received IV sedation. The gastroscope placed oropharynx passed in the esophagus and the stomach. Scope was placed through the pylorus. The first and second portion of the duodenum appeared normal. Scope summer back the antrum was mildly inflamed. The patient a previous gastric sleeve. The gastric sleeve and appeared to be mildly dilated. The scope was brought back to the level of the proximal stomach. There was evidence of a slightly enlarged gastric fundus. There was a questionable hiatal hernia. The GE junction was at 37 cm. The distal esophagusAppeared normal. The proximal esophagus appeared normal. Scope withdrawn for patient. Patient will be scheduled for and esophagram upper GI.
[2022-07-29 11:24] VITALS: BP 132/82; PULSE 81; RESP 15
== END 2022-07-29 11:45 | disposition home or self-care (01) ==
LOC: ORWHC2ENDO 10:04
PROVIDERS: ATTEND Surgery
DX: K29.50 Unspecified chronic gastritis without bleeding (principal); K95.89 Other complications of other bariatric procedure; K21.9 Gastro-esophageal reflux disease without esophagitis; Z98.84 Bariatric surgery status; M19.90 Unspecified osteoarthritis, unspecified site; M79.7 Fibromyalgia; Z87.39 Personal history of other diseases of the musculoskeletal system and connective tissue; G43.909 Migraine, unspecified, not intractable, without status migrainosus; D64.9 Anemia, unspecified; Q79.60 Ehlers-Danlos syndrome, unspecified; F40.240 Claustrophobia; Z90.49 Acquired absence of other specified parts of digestive tract; Z96.652 Presence of left artificial knee joint; Z98.1 Arthrodesis status; F41.0 Panic disorder [episodic paroxysmal anxiety]; F32.A Depression, unspecified; Z83.2 Family history of diseases of the blood and blood-forming organs and certain disorders involving the immune mechanism; Z79.1 Long term (current) use of non-steroidal anti-inflammatories (NSAID); Z79.52 Long term (current) use of systemic steroids; F41.9 Anxiety disorder, unspecified; Z79.899 Other long term (current) drug therapy; Z91.048 Other nonmedicinal substance allergy status; Z88.8 Allergy status to other drugs, medicaments and biological substances; Z91.040 Latex allergy status
CPT/HCPCS: 81025; 88305; 43239; J2704; J2001

== ENCOUNTER → 2022-08-12 | Outpatient (CLI) | payer BC ==
--- NOTE | 2022-08-12 09:24 | FL ---
EXAMINATION TYPE: FL UGI DATE OF EXAM: 08/12/2022 COMPARISON: CT abdomen and pelvis 2017 HISTORY: History of gastric sleeve surgery 2013. History of chronic GERD with some relief with on and off reflux medication for over 20 years. Patient had recent endoscopy 2-3 weeks ago with gastritis a nd possible hiatal hernia. TECHNIQUE: A single contrast UGI study is performed. A total of 32 seconds of fluoroscopic time was utilized during procedure and 54 images obtained. Total dose area product (DAP) in uGy*m?, mGy*cm? ( or similar): n/a. FINDINGS: Patent Clerk image of the abdomen shows surgical sutures and clips epigastric region from prior g astric sleeve surgery. Cholecystectomy clips are seen. The esophagus shows satisfactory motility and emptying into the stomach. No proximal diverticulum. No evidence of fixed hiatal hernia or stricture noted. Anterior fusion plate in the mid to lower cervic al spine is noted. The gastric sleeve shows no significant delay in flow at proximal anastomosis. There is mild delay in the distal anastomosis into the antrum and duodenal sweep. Gastric sleeve appears grossly unremarkab le. There was one episode of gastroesophageal reflux at least to mid esophageal level noted during re al-time performance of study. The duodenal bulb, sweep, and proximal small bowel loops are unremarkable. IMPRESSION: No fixed hiatal hernia. No significant obstruction in the gastric sleeve. Mild to moderat e mid to distal gastroesophageal reflux is noted.
== END | disposition home or self-care (01) ==
LOC: RADUSWWP 07:59
PROVIDERS: ATTEND Surgery
DX: K21.9 Gastro-esophageal reflux disease without esophagitis (principal); Q40.1 Congenital hiatus hernia
CPT/HCPCS: 74240